=== PATIENT | female | born 1995 | race Caucasian/White ===

== ENCOUNTER 2017-03-17 21:00 | Emergency (ER) | payer MEDICAID ==
[~2017-03-17] VITALS: Ht 167.6 cm; Wt 56.7 kg
[~2017-03-17 21:00] MED LIST: ACHYD1T PO; CEPH500C PO; DCS100C PO; DOCU100C37 PO; FERR-65 PO; HYDR-3812 PO; IBP800T PO; IBUP-1773 PO; METH4TAB PO; PREN-48 PO; SPRINTEC BCP PO; [UNRECOGNIZED DRUG - CODE] PO
[2017-03-17 21:51] LABS: BILIRUBIN,URINE NEGATIVE (NEGATIVE); KETONES,URINE NEGATIVE (NEGATIVE); LEUKOCYTE ESTERASE ,URINE 1+ (NEGATIVE); NITRITE,URINE POSITIVE (NEGATIVE); PH,URINE 6.5 (5-9); PROTEIN,URINE 2+ (NEGATIVE); UROBILINOGEN,URINE NORMAL (NORMAL)
[2017-03-17 21:59] LABS: BASOPHILS % (AUTO) 0 % (0-10); EOSINOPHILS # (AUTO) 0.1 10^3/uL (0.0-0.3); EOSINOPHILS % (AUTO) 1 % (0-10); LYMPHOCYTES % (AUTO) 19 % (12-44); MEAN CORPUSCULAR HEMOGLOBIN 31 PG (25-34); MEAN CORPUSCULAR HGB CONC 34 G/DL (32-36); MEAN CORPUSCULAR VOLUME 90 FL (80-99); MEAN PLATELET VOLUME 11.4 FL (7.4-10.4); MONOCYTES # (AUTO) 1.2 X 10^3 (0.0-1.0); MONOCYTES % (AUTO) 12 % (0-12); NEUTROPHILS # (AUTO) 7.1 X 10^3 (1.8-7.8); NEUTROPHILS % (AUTO) 68 % (42-75); PLATELET COUNT 233 10^3/uL (130-400); RED BLOOD COUNT 4.63 10^6/uL (4.35-5.85); RED CELL DISTRIBUTION WIDTH 13.1 % (10.0-14.5); WHITE BLOOD COUNT 10.4 10^3/uL (4.3-11.0)
[2017-03-17] MEDS ORDERED: NS IV 1000 ML 1,000 ML IV ONE (22:05)
[2017-03-17 22:16] LABS: ALANINE AMINOTRANSFERASE 11 U/L (0-55); ALBUMIN 4.5 GM/DL (3.2-4.5); ANION GAP 14 MMOL/L (5-14); ASPARTATE AMINO TRANSFERASE 13 U/L (5-34); BILIRUBIN,TOTAL 1.2 MG/DL (0.1-1.0); BLOOD UREA NITROGEN 8 MG/DL (7-18); BUN/CREATININE RATIO 10; CALCIUM 9.3 MG/DL (8.5-10.1); CARBON DIOXIDE 22 MMOL/L (21-32); CHLORIDE 104 MMOL/L (98-107); CREATININE SERUM 0.78 MG/DL (0.60-1.30); GFR ESTIMATED > 60; GLUCOSE 88 MG/DL (70-105); POTASSIUM 3.5 MMOL/L (3.6-5.0); SODIUM 140 MMOL/L (135-145); TOTAL PROTEIN 7.4 GM/DL (6.4-8.2)
--- NOTE | 2017-03-17 22:37 | ED Abdominal Pain ---
General Chief Complaint: Abdominal/GI Problems Stated Complaint: RT SIDED ABDOMINAL PAIN/FEVER Nursing Triage Note: c/o RUQ abdomen pain with nausea since 10am. Sepsis Screen: No Definite Risk Source of Information: Patient Exam Limitations: No Limitations History of Present Illness Time Seen By Provider: 21:38 Initial Comments This 21-year-old young lady presents to the emergency room with complaints of pain in the right flank and right upper quadrant that started around 10:00 this morning. She has nausea without vomiting. She denies any urinary changes. She had a Mirena IUD placed about 2 weeks ago and therefore denies . She denies any constipation or diarrhea. She had her last bowel movement this morning which was normal. She last ate chips and cheese dip around 19:30. LMP was about 10 days ago. She also complains of a "migraine headache". She has a history of migraines. She denies fever but has had some chills. She reports her pain as 5/10 at rest and 8 or 9/10 with movement. Allergies and Home Medications Allergies Coded Allergies: Penicillins (Verified Allergy, Severe, HIVES, 02/05/12) Home Medications Cephalexin 500 Mg Capsule, 500 MG PO QID, #28 Prescribed by: KIEL ACOSTA on 03/18/17 0007 Docusate Sodium 100 Mg Capsule, 100 MG PO BID PRN for CONSTIPATION, #40 Prescribed by: PRETTY KWON on 09/04/15 1722 Ferrous Sulfate 325 Mg Tablet, 325 MG PO DAILY, #30 Prescribed by: ANDRADE COLEMAN on 09/05/15 0758 Hydrocodone/Acetaminophen 1 Each Tablet, 1-2 TAB PO Q4H PRN for PAIN, #50 Prescribed by: PRETTY KWON on 09/04/15 1722 Ibuprofen 600 Mg Tablet, 600 MG PO Q6H, #80 Prescribed by: PRETTY KWON on 09/04/15 1722 Ondansetron 4 Mg Tab.rapdis, 4 MG SL Q4H PRN for NAUSEA/VOMITING-1ST LINE, #10 Prescribed by: KIEL ACOSTA on 03/18/17 0004 Vit No.78/Iron/FA 1 Each Tablet, 1 EACH PO DAILY, (Reported) Review of Systems Constitutional: chills, No fever EENTM: No Symptoms Reported Respiratory: No Symptoms Reported Cardiovascular: No Symptoms Reported Gastrointestinal: See HPI Genitourinary: No Symptoms Reported Musculoskeletal: no symptoms reported Skin: no symptoms reported Psychiatric/Neurological: No Symptoms Reported Endocrine: No Symptoms Reported Hematologic/Lymphatic: No Symptoms Reported Past Hxbourm-Tpbaxa-Wenmzq Hx Patient Social History Alcohol Use: Denies Use Recreational Drug Use: No Smoking Status: Current Everyday Smoker Type Used: Cigarettes Recent Foreign Travel: No Contact w/Someone Who Travel: No Recent Infectious Disease Expo: No Immunizations Up To Date Tetanus Booster (TDap): Unknown PED Vaccines UTD: Yes Date of Influenza Vaccine: Jul 08, 2015 Surgeries HX Surgeries: Yes Surgeries: Section Respiratory Hx Respiratory Disorders: No Cardiovascular Hx Cardiac Disorders: No Neurological Hx Neurological Disorders: Yes Neurological Disorders: Headaches /Migraines Reproductive System Hx Reproductive Disorders: No Sexually Transmitted Disease: No HIV/AIDS: No Female Reproductive Disorders: Denies Genitourinary Hx Genitourinary Disorders: No Gastrointestinal Hx Gastrointestinal Disorders: Yes ( INDUCED-TAKE TUMS) Gastrointestinal Disorders: Gastroesophageal Reflux Musculoskeletal Hx Musculoskeletal Disorders: No Endocrine Hx Endocrine Disorders: No HEENT HX ENT Disorders: Yes (GLASSES) Loss of Vision: Bilateral Hearing Impairment: Denies Cancer Hx Cancer: No Psychosocial Hx Psychiatric Problems: Yes Behavioral Health Disorders: Anxiety, Depression Integumentary HX Skin/Integumentary Disorder: No Blood Transfusions Hx Blood Disorders: No Adverse Reaction to a Blood Tr: No Family Medical History Family Medial History: Hypertension 19 FATHER Physical Exam Vital Signs VS - Last 72 Hours, by Label 03/17/17 21:08 Temp 99.5 Pulse 108 Resp 18 B/P (MAP) 120/83 Pulse Ox 100 Capillary Refill : Less Than 3 Seconds General Appearance: WD/WN, no apparent distress, thin HEENT: PERRL/EOMI, normal ENT inspection, pharynx normal Neck: normal inspection Respiratory: lungs clear, normal breath sounds, no respiratory distress, no accessory muscle use Cardiovascular: regular rate, rhythm, no edema, no murmur Gastrointestinal: normal bowel sounds, soft Extremities: normal inspection, no pedal edema Back: CVA tenderness (R) Neurologic/Psychiatric: 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 intern II-XII nml as tested, no motor/sensory deficits, alert, normal mood/affect, oriented x 3 Skin: normal color, warm/dry Progress/Results/Core Measures Results/Orders Lab Results Laboratory Tests Test 03/17/17 21:45 03/17/17 21:50 Range/Units Urine Color YELLOW Urine Clarity CLEAR Urine pH 6.5 5-9 Urine Specific [place] 1.010 L 1.016-1.022 Urine Protein 2+ H NEGATIVE Urine Glucose (UA) NEGATIVE NEGATIVE Urine Ketones NEGATIVE NEGATIVE Urine Nitrite POSITIVE H NEGATIVE Urine Bilirubin NEGATIVE NEGATIVE Urine Urobilinogen NORMAL NORMAL MG/DL Urine Leukocyte Esterase 1+ H NEGATIVE Urine RBC (Auto) 1+ H NEGATIVE Urine RBC 2-5 H /HPF Urine WBC 2-5 /HPF Urine Squamous Epithelial Cells 5-10 /HPF Urine Crystals NONE /LPF Urine Bacteria MODERATE H /HPF Urine Casts NONE /LPF Urine Mucus NEGATIVE /LPF Urine Culture Indicated YES White Blood Count 10.4 4.3-11.0 10^3/uL Red Blood Count 4.63 4.35-5.85 10^6/uL Hemoglobin 14.1 11.5-16.0 G/DL Hematocrit 42 35-52 % Mean Corpuscular Volume 90 80-99 FL Mean Corpuscular Hemoglobin 31 25-34 PG Mean Corpuscular Hemoglobin Concent 34 32-36 G/DL Red Cell Distribution Width 13.1 10.0-14.5 % Platelet Count 233 130-400 10^3/uL Mean Platelet Volume 11.4 H 7.4-10.4 FL Neutrophils (%) (Auto) 68 42-75 % Lymphocytes (%) (Auto) 19 12-44 % Monocytes (%) (Auto) 12 0-12 % Eosinophils (%) (Auto) 1 0-10 % Basophils (%) (Auto) 0 0-10 % Neutrophils # (Auto) 7.1 1.8-7.8 X 10^3 Lymphocytes # (Auto) 2.0 1.0-4.0 X 10^3 Monocytes # (Auto) 1.2 H 0.0-1.0 X 10^3 Eosinophils # (Auto) 0.1 0.0-0.3 10^3/uL Basophils # (Auto) 0.0 0.0-0.1 10^3/uL Sodium Level 140 135-145 MMOL/L Potassium Level 3.5 L 3.6-5.0 MMOL/L Chloride Level 104 98-107 MMOL/L Carbon Dioxide Level 22 21-32 MMOL/L Anion Gap 14 5-14 MMOL/L Blood Urea Nitrogen 8 7-18 MG/DL Creatinine 0.78 0.60-1.30 MG/DL Estimat Glomerular Filtration Rate > 60 BUN/Creatinine Ratio 10 Glucose Level 88 70-105 MG/DL Calcium Level 9.3 8.5-10.1 MG/DL Total Bilirubin 1.2 H 0.1-1.0 MG/DL Aspartate Amino Transf (AST/SGOT) 13 5-34 U/L Alanine Aminotransferase (ALT/SGPT) 11 0-55 U/L Alkaline Phosphatase 82 40-136 U/L Total Protein 7.4 6.4-8.2 GM/DL Albumin 4.5 3.2-4.5 GM/DL Serum Test, Qualitative NEGATIVE NEGATIVE My Orders Orders - KIEL HURTADO MD Cbc With Automated Diff (03/17/17 21:44) Comprehensive Metabolic Panel (03/17/17 21:44) Hcg,Qualitative Serum (03/17/17 21:44) Ua Culture If Indicated (03/17/17 21:44) Saline Lock/Iv-Start (03/17/17 21:44) Urine Culture (03/17/17 21:45) Ns Iv 1000 Ml (Sodium Chloride 0.9%) (03/17/17 22:05) Ceftriaxone Injection (Rocephin Injectio (03/17/17 22:45) Ct Abd/Pelvis Wo(Kidney Stone) (03/17/17 22:33) Ketorolac Injection (Toradol Injection) (03/17/17 23:45) Medications Given in ED Current Medications Medications Dose Ordered Sig/Tom Route Start Time Stop Time Status Last Admin Dose Admin Ceftriaxone Sodium 1000 mg/ Sodium Chloride 50 ml @ 100 mls/hr ONCE ONCE IV 03/17/17 22:45 03/17/17 23:14 DC 03/17/17 22:38 100 MLS/HR Ketorolac Tromethamine 30 mg ONCE ONCE IVP 03/17/17 23:45 03/17/17 23:46 DC 03/17/17 23:43 30 MG Sodium Chloride 1,000 ml @ 0 mls/hr Q0M ONCE IV 03/17/17 22:05 03/17/17 22:06 DC 03/17/17 22:18 0 MLS/HR Vital Signs/I&O Vital Sign - Last 12Hours 03/17/17 21:08 Temp 99.5 Pulse 108 Resp 18 B/P (MAP) 120/83 Pulse Ox 100 Blood Pressure Mean: 95 Progress Note #1: Time: 22:35 Progress Note Blood work is unremarkable. Pain and nausea are waxing and waning but tolerable at this time. Patient is receiving a liter of IV fluids. Urinalysis suggested urinary tract infection with nitrite and bacteria presence. There is concern for possible complicated right ureteral stone. CT has been ordered. Progress Note #2: Progress Note Patient received a liter of IV fluids and 1 g of Rocephin. Patient has a penicillin allergy but reported prior tolerance of cephalosporins. Patient was also eventually treated with Toradol for headache and right flank pain. Her pain improved significant prior to dismissal. CT showed no acute abnormalities requiring intervention. Patient was advised to seek further evaluation of the gallbladder with ultrasound if pain did not improve after treatment of UTI. Diagnostic Imaging Diagonstic Imaging: CT Plain Films/CT/US/NM/MRI: abdomen, pelvis Comments CT abdomen and pelvis viewed by me and [facility] report reviewed. There is no evidence for hydronephrosis or perinephric stranding. No evidence of renal or ureteral stone. Gallbladder appeared normal. There is density within the appendix suggestive of appendicoliths but no dilation to suggest appendicitis. Departure Impression Impression: Primary Impression: Urinary tract infection Qualified Codes: N39.0 - Urinary tract infection, site not specified Additional Impressions: Right flank pain Nausea Acute headache Qualified Codes: R51 - Headache Disposition: 01 HOME, SELF-CARE Condition: Improved Departure-Patient Inst. Decision time for Depature: 00:02 Referrals: NO,LOCAL PHYSICIAN (PCP/Family) Primary Care Physician Patient Instructions: Acute Abdomen (Belly Pain), Adult (DC), Urinary Tract Infection, Adult (DC) Add. Discharge Instructions: Drink plenty of clear liquids. Complete your antibiotics as prescribed. Follow -up with your primary care provider on Tuesday. Return to care if symptoms worsen. If he continued to have abdominal pain after treatment with antibiotics , ask your primary care provider about possibly ordering a gallbladder ultrasound. You may take Tylenol (acetaminophen) up to 650 mg every 6 hours as needed for pain. You may additionally take ibuprofen up to 400 mg every 6 hours as needed for further pain relief. Fill the printed Zofran (ondansetron) prescription if needed for treatment of nausea. Eat a low-fat diet to avoid irritation of the gallbladder. All discharge instructions reviewed with patient and/or family. Voiced understanding. Scripts Cephalexin (Keflex) 500 Mg Capsule 500 MG PO QID, #28 CAP Prov: KIEL HURTADO MD 03/18/17 Ondansetron (Zofran Odt) 4 Mg Tab.rapdis 4 MG SL Q4H Y for NAUSEA/VOMITING-1ST LINE, #10 TAB Prov: KIEL HURTADO MD 03/18/17 KIEL HURTADO MD Mar 17, 2017 22:37
[2017-03-17] MEDS ORDERED: cefTRIAXone INJECTION 1,000 MG in NS (IVPB) 50 ML IV ONE (22:45)
[2017-03-17] MEDS ORDERED: KETOROLAC 30 MG/ML VIAL IVP ONE (23:45)
[2017-03-18] MEDS ORDERED: CEPH-507 PO ×2 (00:04→00:07)
[2017-03-18] MEDS ORDERED: ONDA4TAB8 SL (00:04)
[2017-03-18 00:15] VITALS: BP 120/83
--- NOTE | 2017-03-18 07:08 | Diagnostic Imaging Report ---
PROCEDURE: CT urinary tract, rule out kidney stone. TECHNIQUE: Multiple contiguous axial images were obtained through the abdomen and pelvis without the use of intravenous contrast. INDICATION: Right upper quadrant pain and nausea starting earlier in the day. CORRELATION STUDY: None. FINDINGS: LOWER THORAX: Borderline heart size may be accentuated pectus excavatum deformity. Lung bases clear. LIVER: Unremarkable. GALLBLADDER: Present and unremarkable. No bile duct dilatation. SPLEEN: Borderline in size, otherwise unremarkable. PANCREAS: Unremarkable. ADRENAL GLANDS: Unremarkable. KIDNEYS: Relatively normal appearance. No definitive calcification or evidence for obstructive neuropathy. Ureters, however, cannot be completely traced. ABDOMINAL AORTA: Unremarkable, nonaneurysmal. GASTROINTESTINAL TRACT: Some increased density seen within the appendix suggestive of retained barium from perhaps prior examination or appendicolith. No significant dilatation or inflammatory type changes to suggest acute appendicitis. Gastrointestinal tract otherwise unremarkable. Trace amount of nonspecific free fluid suggested in the pelvis. URINARY BLADDER: Unremarkable. REPRODUCTIVE: Intrauterine contraceptive device is present in the uterus. OSSEOUS STRUCTURES: Negative for acute abnormality. Overall assessment is limited by the lack of contrast and generalized paucity of intra-abdominal fat. IMPRESSION: 1. No definitive evidence of acute abnormality about the abdomen and/or pelvis on noncontrast imaging. A preliminary report was provided by [employer]. Dictated by: Dictated on workstation # [id number]
== END 2017-03-18 00:15 | disposition home or self-care (01) ==
LOC: EDUNIT# 21:00 → ER 21:03
DX: N39.0 Urinary tract infection, site not specified (principal); R51 Headache; G43.909 Migraine, unspecified, not intractable, without status migrainosus; F41.9 Anxiety disorder, unspecified; F32.9 Major depressive disorder, single episode, unspecified; K21.9 Gastro-esophageal reflux disease without esophagitis; F17.210 Nicotine dependence, cigarettes, uncomplicated; Z87.59 Personal history of other complications of pregnancy, childbirth and the puerperium
CPT/HCPCS: 36415; 74176; 80053; 81000; 84703; 85025; 87088; 87186; 96361; 96365; 96375

== ENCOUNTER → 2018-12-29 | Emergency (ER) | payer SELFPAY ==
[~2018-12-29] VITALS: Ht 167.6 cm; Wt 56.7 kg
[~2018-12-29] MED LIST changes: +ACHD5005 PO; +CEPH-507 PO; -HYDR-3812 PO; +KETOROLAC 30 MG/ML VIAL IVP ONE; +ONDA4TAB8 SL; +PRD10T PO; +RX-TRAMADOL 50 MG (ULTRAM) TAB PPK#4 PO STA; +RX-TRIMETH/SULFA. 160-800 MG (BACTRIM DS) TAB PPK#2 PO STA; +SULF1TAB35 PO; +TRIM/SULFAMETH 160/800 (SEPTRA DS) TAB PO ONE; +VANCOMYCIN INJECTION 1,000 MG in NS (IVPB) 250 ML IV ONE; +methylPREDNISolone 125 MG (Solu-MEDROL) VIAL IVP ONE
--- NOTE | 2018-12-29 23:43 | NUR ---
pt here with " moms boyfriend". pt alert gcs 15. pt relates " absess" right buttock x 3 days. pt has h/o same. pain rating 7 to area. pt denies dypnea and no acute sighns of dyspnea noted. pt has baseball size rednes and slight swelling to right buttock area. pt said it " popped in shower last noc". pt says tylenol helps with pain. done analisa pt at 0687.
--- NOTE | 2018-12-30 01:11 | NUR ---
labs to lab by me shortly
[2018-12-30 01:23] LABS: BASOPHILS % (AUTO) 0 % (0-10); EOSINOPHILS # (AUTO) 0.1 10^3/uL (0.0-0.3); EOSINOPHILS % (AUTO) 1 % (0-10); HEMATOCRIT 41 % (35-52); HEMOGLOBIN 14.3 G/DL (11.5-16.0); LYMPHOCYTES # (AUTO) 1.2 X 10^3 (1.0-4.0); LYMPHOCYTES % (AUTO) 10 % (12-44); MEAN CORPUSCULAR HEMOGLOBIN 31 PG (25-34); MEAN CORPUSCULAR HGB CONC 35 G/DL (32-36); MEAN CORPUSCULAR VOLUME 89 FL (80-99); MEAN PLATELET VOLUME 11.6 FL (7.4-10.4); MONOCYTES # (AUTO) 1.2 X 10^3 (0.0-1.0); MONOCYTES % (AUTO) 9 % (0-12); NEUTROPHILS # (AUTO) 10.1 X 10^3 (1.8-7.8); NEUTROPHILS % (AUTO) 80 % (42-75); PLATELET COUNT 235 10^3/uL (130-400); WHITE BLOOD COUNT 12.6 10^3/uL (4.3-11.0)
[2018-12-30 01:25] LABS: BILIRUBIN,URINE NEGATIVE (NEGATIVE); CLARITY,URINE CLEAR; COLOR,URINE YELLOW; GLUCOSE, URINE (UA) NEGATIVE (NEGATIVE); KETONES,URINE NEGATIVE (NEGATIVE); LEUKOCYTE ESTERASE ,URINE NEGATIVE (NEGATIVE); NITRITE,URINE NEGATIVE (NEGATIVE); PH,URINE 6 (5-9); PROTEIN,URINE 2+ (NEGATIVE); UROBILINOGEN,URINE NORMAL (NORMAL)
[2018-12-30 01:31] LABS: BACTERIA,URINE NEGATIVE /HPF; RBC,URINE 0-2 /HPF
[2018-12-30 01:41] LABS: AMPHETAMINE SCREEN, URINE POSITIVE (NEGATIVE); BARBITURATE SCREEN URINE NEGATIVE (NEGATIVE); BENZODIAZEPINES SCREEN URINE NEGATIVE (NEGATIVE); CANNABINOID SCREEN, URINE NEGATIVE (NEGATIVE); COCAINE SCREEN URINE NEGATIVE (NEGATIVE); METHADONE STAT NEGATIVE (NEGATIVE); METHAMPHETAMINE SCREEN URINE S POSITIVE (NEGATIVE); OPIATE SCREEN URINE NEGATIVE (NEGATIVE); OXYCODONE STAT NEGATIVE (NEGATIVE); PROPOXYPHENE STAT NEGATIVE (NEGATIVE); TRICYCLIC ANTIDEPRESSANTS SCRE NEGATIVE (NEGATIVE)
[2018-12-30 01:42] LABS: INR 1.2 (0.8-1.4); PROTHROMBIN TIME PATIENT 15.5 SEC (12.2-14.7)
[2018-12-30 01:43] LABS: ALANINE AMINOTRANSFERASE 16 U/L (0-55); ALBUMIN 4.7 GM/DL (3.2-4.5); ALKALINE PHOSPHATASE 82 U/L (40-136); BILIRUBIN,TOTAL 0.7 MG/DL (0.1-1.0); BUN/CREATININE RATIO 16; CALCIUM 9.6 MG/DL (8.5-10.1); CARBON DIOXIDE 21 MMOL/L (21-32); CHLORIDE 105 MMOL/L (98-107); CREATININE SERUM 0.89 MG/DL (0.60-1.30); GFR ESTIMATED > 60; GLUCOSE 72 MG/DL (70-105); POTASSIUM 3.2 MMOL/L (3.6-5.0); SODIUM 138 MMOL/L (135-145)
--- NOTE | 2018-12-30 01:47 | ED Integumentary General ---
General Chief Complaint: Skin/Wound Problems Stated Complaint: ABSCESS AT LOWER BACK,NAUSEA Nursing Triage Note: abscess x 3 days Source: patient History of Present Illness Date Seen by Provider: Dec 30, 2018 Time Seen by Provider: 00:17 Initial Comments PT ARRIVES VIA POV FROM HOME C/O "ABSCESS" TO RIGHT BUTTOCK FOR 3-4 DAYS STATES IT "BROKE OPEN" AND DRAINED A LARGE AMOUNT OF PURULENT DRAINAGE LAST NIGHT STATES REDNESS AND SWELLING HAS IMPROVED ALOT SINCE THEN NO FEVER HAS HAS THE SAME THING A FEW TIMES--LAST TIME WAS 06/2018 ON LEFT BUTTOCK. HAS HAD TO HAVE I&D'S DONE BEFORE HX OF MRSA, PER PT PCP: [facility] Allergies and Home Medications Allergies Coded Allergies: Penicillins (Verified Allergy, Severe, HIVES, 02/05/12) Home Medications Cephalexin 500 Mg Capsule, 500 MG PO QID Prescribed by: KIEL ACOSTA on 03/18/17 0007 Docusate Sodium 100 Mg Capsule, 100 MG PO BID PRN for CONSTIPATION Prescribed by: PRETTY KWON on 09/04/15 1722 Ferrous Sulfate 325 Mg Tablet, 325 MG PO DAILY Prescribed by: ANDRADE COLEMAN on 09/05/15 0758 Hydrocodone Bit/Acetaminophen 1 Each Tablet, 1-2 TAB PO Q4H PRN for PAIN Prescribed by: PRETTY KWON on 09/04/15 172 Ibuprofen 600 Mg Tablet, 600 MG PO Q6H Prescribed by: PRETTY KWON on 09/04/15 1722 Ondansetron 4 Mg Tab.rapdis, 4 MG SL Q4H PRN for NAUSEA/VOMITING-1ST LINE Prescribed by: KIEL ACOSTA on 03/18/17 0004 Prednisone 10 Mg Tab, 40 MG PO DAILY Prescribed by: SUSANNA MURRY on 12/30/18148 Vit No.78/Iron/FA 1 Each Tablet, 1 EACH PO DAILY, (Reported) Sulfamethoxazole/Trimethoprim 1 Each Tablet, 2 EACH PO BID Prescribed by: SUSANNA MURRY on 12/30/18148 Patient Home Medication List Home Medication List Reviewed: Yes Review of Systems Review of Systems Constitutional: no symptoms reported; No chills, No diaphoresis, No fever Respiratory: no symptoms reported Cardiovascular: no symptoms reported Gastrointestinal: no symptoms reported Genitourinary: no symptoms reported : No (LMP--UNKNOWN, HAS IUD IN PLACE) Musculoskeletal: no symptoms reported Skin: see HPI Psychiatric/Neurological: No Symptoms Reported Endocrine: No Symptoms Reported Hematologic/Lymphatic: No Symptoms Reported Past Hnznfqy-Grcmca-Ehixnc Hx Patient Social History Alcohol Use: Denies Use Recreational Drug Use: Yes (DENIES BUT TESTED + FOR METH/AMPHETAMINES ON 12/30/18) Drug of Choice: TESTED + FOR METH/ AMPHETAMINES ON 12/30/18 Smoking Status: Current Everyday Smoker (1 PPD) Type Used: Cigarettes Recent Foreign Travel: No Contact w/Someone Who Travel: No Recent Infectious Disease Expo: No Physical Abuse: No Sexual Abuse: No Immunizations Up To Date Tetanus Booster (TDap): More than 5yrs PED Vaccines UTD: Yes Date of Influenza Vaccine: Jul 08, 2015 Past Medical History Surgeries: Yes ( X 2 ) Section Respiratory: No Cardiac: No Neurological: Yes Headaches /Migraines : No Reproductive Disorders: No Female Reproductive Disorders: Denies 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 Sexually Transmitted Disease: No HIV/AIDS: No Genitourinary: No Gastrointestinal: Yes ( INDUCED-TAKE TUMS) Gastroesophageal Reflux Musculoskeletal: No Endocrine: No Loss of Vision: Bilateral Hearing Impairment: Denies Cancer: No Psychosocial: Yes Anxiety, Depression Integumentary: No Blood Disorders: No Adverse Reaction/Blood Tranf: No Family Medical History Hypertension 19 FATHER Physical Exam Vital Signs Vital Signs - First Documented 12/29/18 23:43 Temp 98.5 Pulse 100 Resp 16 B/P (MAP) 99/63 (75) Pulse Ox 100 O2 Delivery Room Air Capillary Refill : Less Than 3 Seconds General Appearance: no apparent distress, thin, other HEENT: other (POOR DENTITION--MULTIPLE MISSING TEETH AND REMAINING TEETH WITH EXTENSIVE DECAY) Cardiovascular: regular rate, rhythm, no murmur Respiratory: normal breath sounds Gastrointestinal: non tender, soft Back: no CVA tenderness, no vertebral tenderness Extremities: normal range of motion, normal capillary refill Neurologic/Psychiatric: 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 RIGHT BUTTOCK WITH 14 X 18 CM AREA OF WARMTH, ERYTHEMA AND INDURATION, WITH CENTRAL SCABBED AREA. NO AREAS OF FLUCTUANCE. NO DRAINAGE. NO STREAKS. DOES NOT CROSS MIDLINE OR APPROACH PERIRECTAL AREA. ) Progress/Results/Core Measures Results/Orders Lab Results Laboratory Tests Test 12/30/18 00:50 12/30/18 01:03 Range/Units Urine Color YELLOW Urine Clarity CLEAR Urine pH 6 5-9 Urine Specific [place] 1.010 L 1.016-1.022 Urine Protein 2+ H NEGATIVE Urine Glucose (UA) NEGATIVE NEGATIVE Urine Ketones NEGATIVE NEGATIVE Urine Nitrite NEGATIVE NEGATIVE Urine Bilirubin NEGATIVE NEGATIVE Urine Urobilinogen NORMAL NORMAL MG/DL Urine Leukocyte Esterase NEGATIVE NEGATIVE Urine RBC (Auto) 2+ H NEGATIVE Urine RBC 0-2 /HPF Urine WBC NONE /HPF Urine Squamous Epithelial Cells 10-25 H /HPF Urine Crystals NONE /LPF Urine Bacteria NEGATIVE /HPF Urine Casts NONE /LPF Urine Mucus NEGATIVE /LPF Urine Culture Indicated NO Urine Opiates Screen NEGATIVE NEGATIVE Urine Oxycodone Screen NEGATIVE NEGATIVE Urine Methadone Screen NEGATIVE NEGATIVE Urine Propoxyphene Screen NEGATIVE NEGATIVE Urine Barbiturates Screen NEGATIVE NEGATIVE Ur Tricyclic Antidepressants Screen NEGATIVE NEGATIVE Urine Phencyclidine Screen NEGATIVE NEGATIVE Urine Amphetamines Screen POSITIVE H NEGATIVE Urine Methamphetamines Screen POSITIVE H NEGATIVE Urine Benzodiazepines Screen NEGATIVE NEGATIVE Urine Cocaine Screen NEGATIVE NEGATIVE Urine Cannabinoids Screen NEGATIVE NEGATIVE White Blood Count 12.6 H 4.3-11.0 10^3/uL Red Blood Count 4.64 4.35-5.85 10^6/uL Hemoglobin 14.3 11.5-16.0 G/DL Hematocrit 41 35-52 % Mean Corpuscular Volume 89 80-99 FL Mean Corpuscular Hemoglobin 31 25-34 PG Mean Corpuscular Hemoglobin Concent 35 32-36 G/DL Red Cell Distribution Width 13.0 10.0-14.5 % Platelet Count 235 130-400 10^3/uL Mean Platelet Volume 11.6 H 7.4-10.4 FL Neutrophils (%) (Auto) 80 H 42-75 % Lymphocytes (%) (Auto) 10 L 12-44 % Monocytes (%) (Auto) 9 0-12 % Eosinophils (%) (Auto) 1 0-10 % Basophils (%) (Auto) 0 0-10 % Neutrophils # (Auto) 10.1 H 1.8-7.8 X 10^3 Lymphocytes # (Auto) 1.2 1.0-4.0 X 10^3 Monocytes # (Auto) 1.2 H 0.0-1.0 X 10^3 Eosinophils # (Auto) 0.1 0.0-0.3 10^3/uL Basophils # (Auto) 0.0 0.0-0.1 10^3/uL Prothrombin Time 15.5 H 12.2-14.7 SEC INR Comment 1.2 0.8-1.4 Activated Partial Thromboplast Time 43 H 24-35 SEC Sodium Level 138 135-145 MMOL/L Potassium Level 3.2 L 3.6-5.0 MMOL/L Chloride Level 105 98-107 MMOL/L Carbon Dioxide Level 21 21-32 MMOL/L Anion Gap 12 5-14 MMOL/L Blood Urea Nitrogen 14 7-18 MG/DL Creatinine 0.89 0.60-1.30 MG/DL Estimat Glomerular Filtration Rate > 60 BUN/Creatinine Ratio 16 Glucose Level 72 70-105 MG/DL Lactic Acid Level 1.16 0.50-2.00 MMOL/L Calcium Level 9.6 8.5-10.1 MG/DL Corrected Calcium 8.5-10.1 MG/DL Total Bilirubin 0.7 0.1-1.0 MG/DL Aspartate Amino Transf (AST/SGOT) 13 5-34 U/L Alanine Aminotransferase (ALT/SGPT) 16 0-55 U/L Alkaline Phosphatase 82 40-136 U/L Total Protein 8.0 6.4-8.2 GM/DL Albumin 4.7 H 3.2-4.5 GM/DL My Orders Orders - SUSANNA MURRY DO Ed Iv/Invasive Line Start (12/30/18 00:25) Cbc With Automated Diff (12/30/18 00:25) Comprehensive Metabolic Panel (12/30/18 00:25) Drug Screen Stat (Urine) (12/30/18 00:25) Lactic Acid Analyzer (12/30/18 00:25) Protime With Inr (12/30/18 00:25) Partial Thromboplastin Time (12/30/18 00:25) Ua Culture If Indicated (12/30/18 00:25) Blood Culture (12/30/18 00:25) Vancomycin Injection (Vancomycin Injecti (12/30/18 00:30) Ct Pelvis Wo (12/30/18 00:25) Ketorolac Injection (Toradol Injection) (12/30/18 00:30) Methylprednisolone Sod Succ (Solu-Medrol (12/30/18 02:00) Sulfamethoxazole/Trimet Ds Tab (Bactrim (12/30/18 02:00) Rx-Trimeth/Sulfameth Ds Tab (Rx-Bactrim/ (12/30/18 01:50) Rx-Tramadol Hcl (Rx-Ultram) (12/30/18 01:50) Medications Given in ED Current Medications Medications Dose Ordered Sig/Tom Route Start Time Stop Time Status Last Admin Dose Admin Ketorolac Tromethamine 30 mg ONCE ONCE IVP 12/30/18 00:30 12/30/18 00:31 DC 12/30/18 01:06 30 MG Methylprednisolone Sodium Succinate 125 mg ONCE ONCE IVP 12/30/18 02:00 12/30/18 02:24 DC 12/30/18 02:39 125 MG Trimethoprim/ Sulfamethoxazole 2 ea ONCE ONCE PO 12/30/18 02:00 12/30/18 02:24 DC 12/30/18 02:42 2 EA Vancomycin HCl 1000 mg/Sodium Chloride 250 ml @ 250 mls/hr ONCE ONCE IV 12/30/18 00:30 12/30/18 01:29 DC 12/30/18 01:09 250 MLS/HR Vital Signs/I&O 12/29/18 12/30/18 23:43 02:54 Temp 98.5 98.7 Pulse 100 88 Resp 16 16 B/P (MAP) 99/63 (75) 119/86 (97) Pulse Ox 100 100 O2 Delivery Room Air Blood Pressure Mean: 75 Progress Progress Note : Progress Note PAIN IMPROVED AT DISMISSAL Diagnostic Imaging Comments CT ABDOMEN/PELVIS--MODERATE CELLULITIS IN RIGHT GLUTEAL REGION. SMALL AREA OF NON-ENCAPSULATED POSSIBLE SUB Q FLUID DEEP TO IMAGING MARKER ON SKIN, NO MORE THAN 2 CM--PER [facility] VIA FAX @ [id number] Reviewed: Reviewed by Me Departure Impression Primary Impression: Cellulitis of right buttock Additional Impression: Hx MRSA infection Disposition: HOME, SELF-CARE Condition: Stable Departure-Patient Inst. Referrals: [facility] (PCP/Family) Primary Care Physician Patient Instructions: Cellulitis (Skin Infection), Adult (DC), Methicillin- Resistant Staphylococcus aureus (MRSA) Add. Discharge Instructions: MOIST HEAT TO AREA AT 20 MINUTE INTERVALS TYLENOL NEEDED FOR PAIN OR FEVER COVER AREA IF IT STARTS TO DRAIN AGAIN FOLLOW UP WITH [facility] TOMORROW FOR FURTHER CARE All discharge instructions reviewed with patient and/or family. Voiced understanding. Scripts Prednisone (Prednisone) 10 Mg Tab 40 MG PO DAILY, #12 TAB Prov: SUSANNA MURRY DO 12/30/18 Sulfamethoxazole/Trimethoprim (Bactrim Ds Tablet) 1 Each Tablet 2 EACH PO BID, #40 TAB Prov: SUSANNA MURRY DO 12/30/18 SUSANNA MURRY DO Dec 30, 2018 01:47
--- NOTE | 2018-12-30 02:35 | NUR ---
v/o dr. 2 bactrim now and 2 to take home. ultram take home only
--- NOTE | 2018-12-30 02:50 | NUR ---
d/c insructions to pt. told to read all papers. scripts faxed. pt knows f/u. i went over the handtyped by information on the chart. vanco was completed and iv d/cd by me prior to d/c. take home bactrim and ultram given. pt left ambulatory with moms willie.
[2018-12-30 02:54] VITALS: BP 119/86
--- NOTE | 2018-12-30 06:35 | Diagnostic Imaging Report ---
PROCEDURE: CT pelvis without contrast. TECHNIQUE: Multiple contiguous axial images were obtained through the pelvis without the use of intravenous contrast. Sagittal and coronal reformations were performed. Auto Exposure Controls were utilized during the CT exam to meet ALARA standards for radiation dose reduction. INDICATION: Right buttock abscess. FINDINGS: The previous CT abdomen/pelvis exam of 03/17/2017 failed to show any sign of an acute abnormality. At this time, there is clinical concern regarding an abscess arising from the right buttock. The patient was scanned in the prone position. There is considerable distortion of the subcutaneous fat of the right buttock. There is also a small 1.7 x 2.3 cm area of increased density just beneath the skin surface in the area of the marker over the region of concern. This may be related to indurated infected tissue alone. There is no drainable abscess visualized. If further evaluation of this area is desired, then ultrasound would be recommended. There is no acute pelvic abnormality noted. The IUD within the uterus seen on the previous study is again evident and appears to be in good position. IMPRESSION: 1. There is considerable distortion of the subcutaneous fat of the right buttock. This does suggest edema/inflammation and is most likely related to cellulitis. There is an area of increased density in this region but there is no drainable abscess visualized. Additional considerations as above. 2. There is no acute pelvic abnormality noted. 3. There is an IUD in place. Dictated by: Dictated on workstation # [id number]
== END | disposition home or self-care (01) ==
LOC: EDUNIT# 23:06 → ER 23:09
DX: L03.317 Cellulitis of buttock (principal); G43.909 Migraine, unspecified, not intractable, without status migrainosus; K21.9 Gastro-esophageal reflux disease without esophagitis; F41.9 Anxiety disorder, unspecified; F32.9 Major depressive disorder, single episode, unspecified; F15.10 Other stimulant abuse, uncomplicated; F17.210 Nicotine dependence, cigarettes, uncomplicated; Z86.14 Personal history of Methicillin resistant Staphylococcus aureus infection; Z97.5 Presence of (intrauterine) contraceptive device; Z82.49 Family history of ischemic heart disease and other diseases of the circulatory system; Z88.0 Allergy status to penicillin; Z79.52 Long term (current) use of systemic steroids; Z98.890 Other specified postprocedural states
CPT/HCPCS: 72192; 96374; 96375

== ENCOUNTER 2019-01-19 21:29 | Emergency (ER) | payer SELFPAY ==
[~2019-01-19] VITALS: Ht 167.6 cm; Wt 54.4 kg
[~2019-01-19 21:29] MED LIST changes: -KETOROLAC 30 MG/ML VIAL IVP ONE; -RX-TRAMADOL 50 MG (ULTRAM) TAB PPK#4 PO STA; -RX-TRIMETH/SULFA. 160-800 MG (BACTRIM DS) TAB PPK#2 PO STA; -TRIM/SULFAMETH 160/800 (SEPTRA DS) TAB PO ONE; -VANCOMYCIN INJECTION 1,000 MG in NS (IVPB) 250 ML IV ONE; -methylPREDNISolone 125 MG (Solu-MEDROL) VIAL IVP ONE
--- NOTE | 2019-01-19 21:38 | NUR ---
PT HERE BY SELF ALERT [facility] 15. 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 BLEEDING CONTROLLED WITH DIRECT PRESSURE BY PT. PT RELATES LAST TETANUS EITHER 2012 OR 2015. ON EXAM PT HAS LACERATION LEFT MIDDLE FINGER INNER MEDIAL CUTICLE AND LACERATION LEFT RING FINGER DISTAL KNUCKLE. POSITIVE PULSE AND SENSATION LEFT HAND. DONE BRIDGER PT AT 2144.
--- NOTE | 2019-01-19 21:54 | ED Upper Extremity ---
General Stated Complaint: L HAND LAC Source: patient Exam Limitations: no limitations History of Present Illness Date Seen by Provider: Jan 19, 2019 Time Seen by Provider: 21:42 Initial Comments The patient presents to the ER by private conveyance with chief complaint she has lacerated her left hand third and fourth digits middle phalanges and distal phalange E across the fingernail respectively. She was using a saw blade attached to a Gremmel tool cutting on some wood and it slipped off and ran across the dorsum of her fingers. She got the bleeding to stop. She has full range of motion in her hands. She says the pain is minimal. She has not taken anything for it. She thinks her tetanus shot was between 2012 and 2015. Allergies and Home Medications Allergies Coded Allergies: Penicillins (Verified Allergy, Severe, HIVES, 02/05/12) Home Medications Cephalexin 500 Mg Capsule, 500 MG PO QID Prescribed by: KIEL ACOSTA on 03/18/17 0007 Docusate Sodium 100 Mg Capsule, 100 MG PO BID PRN for CONSTIPATION Prescribed by: PRETTY KWON on 09/04/15 1722 Ferrous Sulfate 325 Mg Tablet, 325 MG PO DAILY Prescribed by: ANDRADE COLEMAN on 09/05/15 0758 Hydrocodone Bit/Acetaminophen 1 Each Tablet, 1-2 TAB PO Q4H PRN for PAIN Prescribed by: PRETTY KWON on 09/04/15 172 Ibuprofen 600 Mg Tablet, 600 MG PO Q6H Prescribed by: PRETTY KWON on 09/04/15 1722 Ondansetron 4 Mg Tab.rapdis, 4 MG SL Q4H PRN for NAUSEA/VOMITING-1ST LINE Prescribed by: KIEL ACOSTA on 03/18/17 0004 Prednisone 10 Mg Tab, 40 MG PO DAILY Prescribed by: SUSANNA MURRY on 12/30/18 014 Vit No.78/Iron/FA 1 Each Tablet, 1 EACH PO DAILY, (Reported) Sulfamethoxazole/Trimethoprim 1 Each Tablet, 2 EACH PO BID Prescribed by: SUSANNA MURRY on 12/30/18 014 Sulfamethoxazole/Trimethoprim 1 Each Tablet, 1 EACH PO BID Prescribed by: DINORA QUINN on 01/19/19 2201 Patient Home Medication List Home Medication List Reviewed: Yes Review of Systems Constitutional: No chills, No diaphoresis EENTM: No ear discharge, No ear pain Respiratory: No cough, No short of breath Cardiovascular: No chest pain, No edema Past Mfshnvs-Ynvkvu-Ejwses Hx Patient Social History Alcohol Use: Denies Use Recreational Drug Use: No Drug of Choice: TESTED + FOR METH/ AMPHETAMINES ON 12/30/18 Smoking Status: Current Everyday Smoker Type Used: Cigarettes Recent Foreign Travel: No Contact w/Someone Who Travel: No Immunizations Up To Date Tetanus Booster (TDap): More than 5yrs PED Vaccines UTD: Yes Date of Influenza Vaccine: Jul 08, 2015 Past Medical History Surgeries: Yes ( X 2 ) Section Respiratory: No Cardiac: No Neurological: Yes Headaches /Migraines Reproductive Disorders: No Female Reproductive Disorders: Denies 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 oz. 56.156884lq; 27.66 BMI Method:Stated General Appearance: WD/WN, mild distress HEENT: PERRL/EOMI, pharynx normal Neck: non-tender, full range of motion Cardiovascular: normal peripheral pulses, regular rate, rhythm Respiratory: no respiratory distress, no accessory muscle use Hand: laceration (linear laceration down to the extensor sheath on the third digit middle interphalangeal as well as the fourth digit distal phalange across the tip of the fingernail but not involving the cuticle.) Neurologic/Tendon: normal sensation, normal motor functions, tendon function deficit (unable to extend the distal phalange of the third digit left hand) Neurologic/Psychiatric: no motor/sensory deficits, alert, normal mood/affect, oriented x 3 Procedures/Interventions Wound Location: Upper Extremities Other Wound Location Left hand third digit dorsal, middle phalange Wound Length (cm): 2 Wound's Depth, Shape: linear, sub Q, tendon Wound Explored: no foreign body removed Irrigated w/ Saline (ccs): 30 Betadine Prep?: Yes (and chlorhexidine) Anesthesia: 1% Lidocaine (without epinephrine) Volume Anesthetic (ccs): 3 Wound Debrided: minimal Suture: Prolene Suture Size: 4-0 Number of Sutures: 3 Sterile Dressing Applied?: Yes Progress Wound was thoroughly cleaned and then a digital block was applied using 1% lidocaine. The wound was numb we reapproximated the skin edges and stitched them together using simple interrupted stitches 3. Wound Location: Upper Extremities Wound Length (cm): 1.5 Wound's Depth, Shape: linear, nail-avulsed (distal tip of the nail not in volving the cuticle), sub Q Wound Explored: no foreign body removed Irrigated w/ Saline (ccs): 30 Betadine Prep?: Yes (and chlorhexidine prep) Anesthesia: 1% Lidocaine (without epinephrine) Volume Anesthetic (ccs): 2 Wound Debrided: minimal Suture: Prolene Suture Size: 4-0 Number of Sutures: 2 Progress Patient's finger was cleaned thoroughly using chlorhexidine and then soaked in Betadine. We put a digital block in place and clean the site. It was only into the subcutaneous fat pad under the distal tip of the finger nail. We stitched the distal tip of the finger with one simple interrupted suture and the proximal medial portion of the fingertip with one simple, interrupted suture using 4-0 Prolene. We then applied a small amount of cyanoacrylate between the finger fin gernail pieces to reapproximate the skin pieces. Patient tolerated the procedure well. Progress/Results/Core Measures Results/Orders My Orders Orders - DINORA QUINN DiphtPerttoby(Acell),Tet Adult (Boostrix (01/19/19 22:00) Sulfamethoxazole/Trimet Ds Tab (Bactrim (01/19/19 22:00) Medications Given in ED Current Medications Medications Dose Ordered Sig/Tom Route Start Time Stop Time Status Last Admin Dose Admin Diphtheria/ Tetanus/Acell Pertussis 0.5 ml ONCE ONCE IM 01/19/19 22:00 01/19/19 22:01 DC 01/19/19 22:05 0.5 ML Trimethoprim/ Sulfamethoxazole 1 ea ONCE ONCE PO 01/19/19 22:00 01/19/19 22:01 DC 01/19/19 22:05 1 EA Progress Progress Note : Time: 21:54 Progress Note Clean the wound thoroughly give her a tetanus shot start her on some prophylactic antibiotics and she should heal well. Departure Impression Primary Impression: Laceration of finger of left hand without foreign body with damage to nail Qualified Codes: S61.315A - Laceration without foreign body of left ring finger with damage to nail, initial encounter Additional Impression: Finger laceration involving tendon Qualified Codes: S61.219A - Laceration without foreign body of unspecified finger without damage to nail, initial encounter Disposition: 01 HOME, SELF-CARE Condition: Improved Departure-Patient Inst. Decision time for Depature: 22:43 Referrals: [facility] [place] (PCP/Family) Primary Care Physician MYNOR RICKETTS MD Patient Instructions: Laceration Repair With Stitches (DC) Add. Discharge Instructions: Return to the ER or your private doctor in 7-10 days to have the stitches out. Called Dr. RICKETTS, orthopedic surgery for reexamination of your possible tendon injury to finger Tuesday morning. For swelling elevate the hand above the level of your heart. For pain use Tylenol 1000 mg in addition to ibuprofen 800 mg every 8 hours as needed. Clean the wound with regular soap and water only. Keep clean dry dressing on it and change it daily or as often as necessary. You may use a thin layer of Vaseline or triple antibiotic ointment over the stitches to keep them from sticking to the dressing and keep the wound clean. Bactrim DS one tablet twice daily with food for the next 3 days to prevent infection. Scripts Sulfamethoxazole/Trimethoprim (Bactrim Ds Tablet) 1 Each Tablet 1 EACH PO BID for 3 Days, #6 TAB 0 Refills Prov: DINORA QUINN 01/19/19 Copy Copies To 1: MYNOR RICKETTS MD, TITUS J Jan 19, 2019 21:54
[2019-01-19] MEDS ORDERED: TRIM/SULFAMETH 160/800 (SEPTRA DS) TAB PO ONE (22:00)
[2019-01-19] MEDS ORDERED: TETANUS,DIPTH,PERTUSS P/F (BOOSTRIX) 0.5 ML VIAL IM ONE (22:00)
[2019-01-19] MEDS ORDERED: SULF1TAB35 PO (22:01)
[2019-01-19 22:52] VITALS: BP 118/78
--- NOTE | 2019-01-19 22:52 | NUR ---
SOMEONE ELSE D/CD PT.
--- NOTE | 2019-01-19 23:11 | NUR ---
SOMEONE ELSE DID POST SUTURES WOUND CARE AND D/CD PT.
== END 2019-01-19 22:55 | disposition home or self-care (01) ==
LOC: EDUNIT# 21:29 → ER 21:31
DX: S61.315A Laceration without foreign body of left ring finger with damage to nail, initial encounter (principal); S61.313A Laceration without foreign body of left middle finger with damage to nail, initial encounter; G43.909 Migraine, unspecified, not intractable, without status migrainosus; F41.9 Anxiety disorder, unspecified; F32.9 Major depressive disorder, single episode, unspecified; F17.210 Nicotine dependence, cigarettes, uncomplicated; Z97.5 Presence of (intrauterine) contraceptive device; Z98.890 Other specified postprocedural states; Z82.49 Family history of ischemic heart disease and other diseases of the circulatory system; Z88.0 Allergy status to penicillin; Z23 Encounter for immunization; Z79.52 Long term (current) use of systemic steroids; W31.2XXA Contact with powered woodworking and forming machines, initial encounter
CPT/HCPCS: 12031; 90715

== ENCOUNTER 2020-05-02 17:16 | Observation (INO) | payer SELFPAY ==
[~2020-05-02] VITALS: Ht 167.7 cm; Wt 61.1 kg
[2020-05-02] MEDS ORDERED: NS IV 1000 ML 1,000 ML IV SCH (17:45)
[2020-05-02] MEDS ORDERED: fentaNYL INJECTION 100 MCG/2 ML AMP IVP ONE ×2 (17:45→19:45)
--- NOTE | 2020-05-02 17:47 | ED Abdominal Pain ---
General Stated Complaint: UPPER & LOWER ABDOMINAL PAIN Source of Information: Patient Exam Limitations: No Limitations History of Present Illness Date Seen by Provider: May 02, 2020 Time Seen by Provider: 17:45 Initial Comments To ER with reports of upper and lower abdominal pain that began about 1 or 2 AM last night. No nausea or vomiting but she has had worsening of pain, mostly on the right side and suprapubic locations. Pain is worsened by coughing and moving. Timing/Duration: 12-24 Hours Severity/Quality: Moderate, Severe Location: RLQ, Generalized Abdomen, Suprapubic Radiation: No Radiation Activities at Onset: None Associated Symptoms: Denies Symptoms Allergies and Home Medications Allergies Coded Allergies: Penicillins (Verified Allergy, Severe, HIVES, 02/05/12) Home Medications Cephalexin 500 Mg Capsule, 500 MG PO QID Prescribed by: KIEL ACOSTA on 03/18/17 0007 Docusate Sodium 100 Mg Capsule, 100 MG PO BID PRN for CONSTIPATION Prescribed by: PRETTY KWON on 09/04/15 172 Ferrous Sulfate 325 Mg Tablet, 325 MG PO DAILY Prescribed by: ANDRADE COLEMAN on 09/05/15 0758 Hydrocodone Bit/Acetaminophen 1 Each Tablet, 1-2 TAB PO Q4H PRN for PAIN Prescribed by: PRETTY KWON on 09/04/15 172 Ibuprofen 600 Mg Tablet, 600 MG PO Q6H Prescribed by: PRETTY KWON on 09/04/15 172 Ondansetron 4 Mg Tab.rapdis, 4 MG SL Q4H PRN for NAUSEA/VOMITING-1ST LINE Prescribed by: KIEL ACOSTA on 03/18/17 0004 Prednisone 10 Mg Tab, 40 MG PO DAILY Prescribed by: SUSANNA MURRY on 12/30/18 014 Vit No.78/Iron/FA 1 Each Tablet, 1 EACH PO DAILY, (Reported) Sulfamethoxazole/Trimethoprim 1 Each Tablet, 2 EACH PO BID Prescribed by: SUSANNA MURRY on 12/30/18 014 Sulfamethoxazole/Trimethoprim 1 Each Tablet, 1 EACH PO BID Prescribed by: DINORA QUINN on 01/19/19 2201 Patient Home Medication List Home Medication List Reviewed: Yes Review of Systems Review of Systems Constitutional: see HPI EENTM: No Symptoms Reported Respiratory: No Symptoms Reported Cardiovascular: No Symptoms Reported Gastrointestinal: See HPI, Abdominal Pain Genitourinary: No Symptoms Reported Musculoskeletal: no symptoms reported Skin: no symptoms reported Psychiatric/Neurological: No Symptoms Reported Endocrine: No Symptoms Reported Hematologic/Lymphatic: No Symptoms Reported Past Vyfgnoe-Ffbfhv-Pjnlqo Hx Patient Social History Drug of Choice: TESTED + FOR METH/ AMPHETAMINES ON 12/30/18 Type Used: Cigarettes Recent Foreign Travel: No Contact w/Someone Who Travel: No Immunizations Up To Date Tetanus Booster (TDap): More than 5yrs PED Vaccines UTD: Yes Date of Influenza Vaccine: Jul 08, 2015 Past Medical History Surgeries: Yes ( X 2 ) Section Respiratory: No Cardiac: No Neurological: Yes Headaches /Migraines Reproductive Disorders: No Female Reproductive Disorders: Denies 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 Sexually Transmitted Disease: No HIV/AIDS: No Genitourinary: No Gastrointestinal: Yes ( INDUCED-TAKE TUMS) Gastroesophageal Reflux Musculoskeletal: No Endocrine: No Loss of Vision: Bilateral Hearing Impairment: Denies Cancer: No Psychosocial: Yes Anxiety, Depression Integumentary: No Blood Disorders: No Adverse Reaction/Blood Tranf: No Family Medical History Hypertension 19 FATHER Physical Exam Vital Signs Vital Signs - First Documented 05/02/20 17:35 Temp 37.7 Pulse 110 Resp 24 B/P (MAP) 108/83 (91) Pulse Ox 100 O2 Delivery Room Air Capillary Refill : Height/Weight/BMI Height: 5'6.00" Weight: 120lbs. oz. 54.931878bf; 27.66 BMI Method:Stated General Appearance: WD/WN, no apparent distress HEENT: PERRL/EOMI, normal ENT inspection Respiratory: no respiratory distress, no accessory muscle use Gastrointestinal: normal bowel sounds, soft, tenderness Extremities: normal range of motion, non-tender, normal inspection Neurologic/Psychiatric: alert, normal mood/affect, oriented x 3 Skin: normal color, warm/dry Procedures/Interventions Suture Size: 4-0 Progress/Results/Core Measures Results/Orders Lab Results Laboratory Tests Test 05/02/20 17:36 05/02/20 17:45 Range/Units Urine Color YELLOW Urine Clarity CLEAR Urine pH 7.0 5-9 Urine Specific [place] 1.015 L 1.016-1.022 Urine Protein TRACE H NEGATIVE Urine Glucose (UA) NEGATIVE NEGATIVE Urine Ketones TRACE H NEGATIVE Urine Nitrite NEGATIVE NEGATIVE Urine Bilirubin NEGATIVE NEGATIVE Urine Urobilinogen 4.0 < = 1.0 MG/DL Urine Leukocyte Esterase 1+ H NEGATIVE Urine RBC (Auto) NEGATIVE NEGATIVE Urine RBC RARE /HPF Urine WBC 10-25 H /HPF Urine Squamous Epithelial Cells 2-5 /HPF Urine Crystals NONE /LPF Urine Bacteria TRACE /HPF Urine Casts NONE /LPF Urine Mucus MODERATE H /LPF Urine Culture Indicated YES Urine Opiates Screen NEGATIVE NEGATIVE Urine Oxycodone Screen NEGATIVE NEGATIVE Urine Methadone Screen NEGATIVE NEGATIVE Urine Propoxyphene Screen NEGATIVE NEGATIVE Urine Barbiturates Screen NEGATIVE NEGATIVE Ur Tricyclic Antidepressants Screen NEGATIVE NEGATIVE Urine Phencyclidine Screen NEGATIVE NEGATIVE Urine Amphetamines Screen POSITIVE H NEGATIVE Urine Methamphetamines Screen POSITIVE H NEGATIVE Urine Benzodiazepines Screen NEGATIVE NEGATIVE Urine Cocaine Screen NEGATIVE NEGATIVE Urine Cannabinoids Screen NEGATIVE NEGATIVE White Blood Count 23.2 H 4.3-11.0 10^3/uL Red Blood Count 5.12 H 3.80-5.11 10^6/uL Hemoglobin 15.2 11.5-16.0 g/dL Hematocrit 45 35-52 % Mean Corpuscular Volume 88 80-99 fL Mean Corpuscular Hemoglobin 30 25-34 pg Mean Corpuscular Hemoglobin Concent 34 32-36 g/dL Red Cell Distribution Width 12.7 10.0-14.5 % Platelet Count 322 130-400 10^3/uL Mean Platelet Volume 10.9 9.0-12.2 fL Immature Granulocyte % (Auto) 1 % Neutrophils (%) (Auto) 92 H 42-75 % Lymphocytes (%) (Auto) 5 L 12-44 % Monocytes (%) (Auto) 3 0-12 % Eosinophils (%) (Auto) 0 0-10 % Basophils (%) (Auto) 0 0-10 % Neutrophils # (Auto) 21.3 H 1.8-7.8 10^3/uL Lymphocytes # (Auto) 1.1 1.0-4.0 10^3/uL Monocytes # (Auto) 0.7 0.0-1.0 10^3/uL Eosinophils # (Auto) 0.0 0.0-0.3 10^3/uL Basophils # (Auto) 0.0 0.0-0.1 10^3/uL Immature Granulocyte # (Auto) 0.1 0.0-0.1 10^3/uL Neutrophils % (Manual) 91 % Lymphocytes % (Manual) 5 % Monocytes % (Manual) 0 % Eosinophils % (Manual) 0 % Basophils % (Manual) 0 % Band Neutrophils 3 % Reactive Lymphocytes 1 % Toxic Granulation 1+ Sodium Level 133 L 135-145 MMOL/L Potassium Level 4.1 3.6-5.0 MMOL/L Chloride Level 100 98-107 MMOL/L Carbon Dioxide Level 20 L 21-32 MMOL/L Anion Gap 13 5-14 MMOL/L Blood Urea Nitrogen 13 7-18 MG/DL Creatinine 0.95 0.60-1.30 MG/DL Estimat Glomerular Filtration Rate > 60 BUN/Creatinine Ratio 14 Glucose Level 101 70-105 MG/DL Calcium Level 9.1 8.5-10.1 MG/DL Corrected Calcium 8.7 8.5-10.1 MG/DL Total Bilirubin 1.7 H 0.1-1.0 MG/DL Aspartate Amino Transf (AST/SGOT) 22 5-34 U/L Alanine Aminotransferase (ALT/SGPT) 19 0-55 U/L Alkaline Phosphatase 88 40-136 U/L Total Protein 8.3 H 6.4-8.2 GM/DL Albumin 4.5 3.2-4.5 GM/DL Lipase 14 8-78 U/L My Orders Orders - JUAN J STANLEY [employer]OTWEAR PRODUCTION MACHINE OPERATOR Cbc With Automated Diff (05/02/20 17:38) Urine Bedside (05/02/20 17:38) Comprehensive Metabolic Panel (05/02/20 17:38) Lipase (05/02/20 17:38) Ed Iv/Invasive Line Start (05/02/20 17:38) Ua Culture If Indicated (05/02/20 17:43) Drug Screen Stat (Urine) (05/02/20 17:43) Ed Iv/Invasive Line Start (05/02/20 17:43) Ns Iv 1000 Ml (Sodium Chloride 0.9%) (05/02/20 17:45) Fentanyl Injection (Sublimaze Injection (05/02/20 17:45) Ct Abd/Pelv W (Appendicitis) (05/02/20 17:43) Iohexol Injection (Omnipaque 350 Mg/Ml 1 (05/02/20 18:00) Received Contrast (Hold Metformin- Contr (05/02/20 18:00) Ns (Ivpb) (Sodium Chloride 0.9% Ivpb Bag (05/02/20 18:00) Urine Culture (05/02/20 17:36) Manual Differential (05/02/20 17:45) Blood Culture (05/02/20 18:21) Lactic Acid Analyzer (05/02/20 18:21) Medications Given in ED Current Medications Medications Dose Ordered Sig/Tom Route Start Time Stop Time Status Last Admin Dose Admin Fentanyl Citrate 50 mcg ONCE ONCE IVP 05/02/20 17:45 05/02/20 17:46 DC 05/02/20 17:55 50 MCG Iohexol 100 ml ONCE ONCE IV 05/02/20 18:00 05/02/20 18:01 DC 05/02/20 18:03 74 ML Sodium Chloride 100 ml ONCE ONCE IV 05/02/20 18:00 05/02/20 18:01 DC 05/02/20 18:03 80 ML Vital Signs/I&O 05/02/20 17:35 Temp 37.7 Pulse 110 Resp 24 B/P (MAP) 108/83 (91) Pulse Ox 100 O2 Delivery Room Air Diagnostic Imaging Diagonstic Imaging: Xray Comments NAME: [facility] REC#: [id number] PT STATUS: REG ER : 1995 PHYSICIAN: JUAN J STANLEY FOOTWEAR PRODUCTION MACHINE OPERATOR ADMIT DATE: 05/02/20/ER Draft Date of Exam:05/02/20 CT ABD/PELV W (APPENDICITIS) PROCEDURE: CT abdomen and pelvis with contrast, rule out appendicitis. TECHNIQUE: Multiple contiguous axial images were obtained through the abdomen and pelvis after the administration of intravenous contrast. All CT scans use one or more of the following dose optimizing techniques: automated exposure control, MA and/or KvP adjustment based on patient size and exam type or iterative reconstruction. INDICATION: Right lower quadrant pain with diarrhea times approximately 15-16 hours. CORRELATION STUDY: 03/17/2017 FINDINGS: LOWER THORAX: Clear. LIVER: Unremarkable. GALLBLADDER: Present and unremarkable. No bile duct dilatation. SPLEEN: Enlarged at 16 cm. PANCREAS: Unremarkable. ADRENAL GLANDS: Unremarkable. KIDNEYS: Normal configuration. No calcification or obstruction. ABDOMINAL AORTA: Unremarkable, nonaneurysmal. GASTROINTESTINAL TRACT: Small amount of fluid within the stomach. There is fluid and gas distention of a large portion of the small bowel. Some areas of asymmetric a small bowel wall thickening are noted, particularly in the lower abdomen and pelvis. The terminal ileum is rather significantly distended and fluid filled. What appears to be a portion of the appendix projecting posteriorly is grossly unremarkable. Gas and liquid through a large portion of the colon compatible with diarrheal state, somewhat more thickened at the level of the rectum. URINARY BLADDER: Essentially decompressed and emptied. REPRODUCTIVE: Intrauterine contraceptive device is present. OSSEOUS STRUCTURES: No acute abnormality. OTHER: Trace amount of pelvic fluid. IMPRESSION: 1. There is rather prominent fluid and gas distention with what appears to be hyperemia and thickening of small bowel segments particularly in the lower abdomen and pelvis. Features favoring probable nonspecific enteritis could be infectious or inflammatory in etiology. 2. While the appendix is not well visualized, there is no definitive CT findings to suggest acute appendicitis. 3. Splenomegaly. Dictated on workstation # [id number] Dict: 05/02/201809 Trans: 05/02/201826 [facility] [id number] Interpreted by: ABBY LUO DO Electronically signed by: Departure Communication (Admissions) Time/Spoke to Admitting Phy: 18:[address] BANUELOS, we will admit on antibiotics and pain medication, reevaluate in the morning. Impression Primary Impression: Abdominal pain Qualified Codes: R10.31 - Right lower quadrant pain Additional Impressions: Leukocytosis Qualified Codes: D72.829 - Elevated white blood cell count, unspecified UTI (urinary tract infection) Qualified Codes: N30.00 - Acute cystitis without hematuria Disposition: ADMITTED INPATIENT Condition: Stable Admissions Decision to Admit Reason: Admit from ER (General) Decision to Admit/Date: May 02, 2020 Time/Decision to Admit Time: 18:32 Departure-Patient Inst. Referrals: [facility] (PCP/Family) Primary Care Physician JUAN J STANLEY APRN May 02, 2020 17:47
[2020-05-02 17:49] LABS: BILIRUBIN,URINE NEGATIVE (NEGATIVE); CLARITY,URINE CLEAR; COLOR,URINE YELLOW; GLUCOSE, URINE (UA) NEGATIVE (NEGATIVE); KETONES,URINE TRACE (NEGATIVE); LEUKOCYTE ESTERASE ,URINE 1+ (NEGATIVE); NITRITE,URINE NEGATIVE (NEGATIVE); PROTEIN,URINE TRACE (NEGATIVE)
[2020-05-02 17:54] LABS: BASOPHILS % (AUTO) 0 % (0-10); EOSINOPHILS % (AUTO) 0 % (0-10); HEMATOCRIT 45 % (35-52); HEMOGLOBIN 15.2 g/dL (11.5-16.0); LYMPHOCYTES # (AUTO) 1.1 10^3/uL (1.0-4.0); LYMPHOCYTES % (AUTO) 5 % (12-44); MEAN CORPUSCULAR HEMOGLOBIN 30 pg (25-34); MEAN CORPUSCULAR HGB CONC 34 g/dL (32-36); MEAN CORPUSCULAR VOLUME 88 fL (80-99); MEAN PLATELET VOLUME 10.9 fL (9.0-12.2); MONOCYTES # (AUTO) 0.7 10^3/uL (0.0-1.0); MONOCYTES % (AUTO) 3 % (0-12); NEUTROPHILS # (AUTO) 21.3 10^3/uL (1.8-7.8); NEUTROPHILS % (AUTO) 92 % (42-75); PLATELET COUNT 322 10^3/uL (130-400); WHITE BLOOD COUNT 23.2 10^3/uL (4.3-11.0)
[2020-05-02 17:54] LABS: BACTERIA,URINE TRACE /HPF; RBC,URINE RARE /HPF
[2020-05-02 17:59] LABS: AMPHETAMINE SCREEN, URINE POSITIVE (NEGATIVE); BARBITURATE SCREEN URINE NEGATIVE (NEGATIVE); BENZODIAZEPINES SCREEN URINE NEGATIVE (NEGATIVE); CANNABINOID SCREEN, URINE NEGATIVE (NEGATIVE); COCAINE SCREEN URINE NEGATIVE (NEGATIVE); METHADONE STAT NEGATIVE (NEGATIVE); METHAMPHETAMINE SCREEN URINE S POSITIVE (NEGATIVE); OPIATE SCREEN URINE NEGATIVE (NEGATIVE); OXYCODONE STAT NEGATIVE (NEGATIVE); PROPOXYPHENE STAT NEGATIVE (NEGATIVE); TRICYCLIC ANTIDEPRESSANTS SCRE NEGATIVE (NEGATIVE)
[2020-05-02] MEDS ORDERED: HOLD METFORMIN - RECEIVED CONTRAST 20 ML VIAL IV SCH (18:00)
[2020-05-02] MEDS ORDERED: IOHEXOL 350 MG/ML 100 ML (OMNIPAQUE 350) VIAL IV ONE (18:00)
[2020-05-02] MEDS ORDERED: NS 100 ML (IVPB) BAG IV ONE (18:00)
[2020-05-02 18:04] LABS: BAND NEUTROPHILS 3 %; BASOPHILS % (MANUAL) 0 %; EOSINOPHILS % (MANUAL) 0 %; LYMPHOCYTES % (MANUAL) 5 %; MONOCYTES % (MANUAL) 0 %; NEUTROPHILS % (MANUAL) 91 %
[2020-05-02 18:05] LABS: REACTIVE LYMPHOCYTES 1 %; TOXIC GRANULATION/VACUOLAZATIO 1+
[2020-05-02 18:06] LABS: ALBUMIN 4.5 GM/DL (3.2-4.5)
[2020-05-02 18:07] LABS: CHLORIDE 100 MMOL/L (98-107); POTASSIUM 4.1 MMOL/L (3.6-5.0); SODIUM 133 MMOL/L (135-145)
[2020-05-02 18:08] LABS: CALCIUM 9.1 MG/DL (8.5-10.1)
[2020-05-02 18:09] LABS: GLUCOSE 101 MG/DL (70-105); TOTAL PROTEIN 8.3 GM/DL (6.4-8.2)
[2020-05-02 18:10] LABS: CARBON DIOXIDE 20 MMOL/L (21-32)
[2020-05-02 18:11] LABS: BILIRUBIN,TOTAL 1.7 MG/DL (0.1-1.0)
[2020-05-02 18:12] LABS: ALKALINE PHOSPHATASE 88 U/L (40-136)
[2020-05-02 18:13] LABS: CREATININE SERUM 0.95 MG/DL (0.60-1.30); GFR ESTIMATED > 60
[2020-05-02 18:14] LABS: BUN/CREATININE RATIO 14
[2020-05-02 18:16] LABS: ALANINE AMINOTRANSFERASE 19 U/L (0-55); LIPASE 14 U/L (8-78)
--- NOTE | 2020-05-02 18:27 | Diagnostic Imaging Report ---
PROCEDURE: CT abdomen and pelvis with contrast, rule out appendicitis. TECHNIQUE: Multiple contiguous axial images were obtained through the abdomen and pelvis after the administration of intravenous contrast. All CT scans use one or more of the following dose optimizing techniques: automated exposure control, MA and/or KvP adjustment based on patient size and exam type or iterative reconstruction. INDICATION: Right lower quadrant pain with diarrhea times approximately 15-16 hours. CORRELATION STUDY: 03/17/2017 FINDINGS: LOWER THORAX: Clear. LIVER: Unremarkable. GALLBLADDER: Present and unremarkable. No bile duct dilatation. SPLEEN: Enlarged at 16 cm. PANCREAS: Unremarkable. ADRENAL GLANDS: Unremarkable. KIDNEYS: Normal configuration. No calcification or obstruction. ABDOMINAL AORTA: Unremarkable, nonaneurysmal. GASTROINTESTINAL TRACT: Small amount of fluid within the stomach. There is fluid and gas distention of a large portion of the small bowel. Some areas of asymmetric a small bowel wall thickening are noted, particularly in the lower abdomen and pelvis. The terminal ileum is rather significantly distended and fluid filled. What appears to be a portion of the appendix projecting posteriorly is grossly unremarkable. Gas and liquid through a large portion of the colon compatible with diarrheal state, somewhat more thickened at the level of the rectum. URINARY BLADDER: Essentially decompressed and emptied. REPRODUCTIVE: Intrauterine contraceptive device is present. OSSEOUS STRUCTURES: No acute abnormality. OTHER: Trace amount of pelvic fluid. IMPRESSION: 1. There is rather prominent fluid and gas distention with what appears to be hyperemia and thickening of small bowel segments particularly in the lower abdomen and pelvis. Features favoring probable nonspecific enteritis could be infectious or inflammatory in etiology. 2. While the appendix is not well visualized, there is no definitive CT findings to suggest acute appendicitis. 3. Splenomegaly. Dictated by: Dictated on workstation # [id number]
[2020-05-02] MEDS ORDERED: cefTRIAXone FOR IV USE 1,000 MG in WATER (STERILE) FOR INJECTION 10 ML IV ONE (18:45)
--- NOTE | 2020-05-02 20:40 | NUR ---
DALE BEDOYA admitted to room 423-1, with an admitting diagnosis of ABD PAIN,UTI, on 05/02/20 from ED via WHEELCHAIR, accompanied by STAFF.DALE BEDOYA introduced to surroundings, call light, bed controls, phone, TV, temperature control, lights, meal times, smoking policy, visitor policy, side rail policy, bathrooms and showers. Patient Rights given to patient in the handbook. DALE BEDOYA verbalizes understanding that [facility] is not responsible for the loss or damage to any personal effects or valuables that are kept in the patients posession during their hospitalization. DALE BEDOYA verbalizes understanding of Interdisciplinary Patient Education. Patient and/or family were informed about the Rapid Response Team and its purpose.
[2020-05-02] MEDS ORDERED: LACTATED RINGERS 1,000 ML IV ONE (20:44)
[2020-05-02 20:45] VITALS: BP 103/70
--- NOTE | 2020-05-02 21:10 | HISTORY AND PHYSICAL ---
DATE OF SERVICE: ATTENDING LOAN TELLER: [facility]. HISTORY OF PRESENT ILLNESS: The patient is a 24-year-old female, who presented to the Emergency Department with a 1-day history of pain more in the suprapubic region. She states that the pain worsened over time. She states that she has had some mild nausea; however, no vomiting. She does not report any diarrhea nor constipation as well as no red blood per rectum nor any dark tarry stools. She does have a history of drug abuse and is currently positive for methamphetamine as well as amphetamine. A CT scan was performed, which did show short segmental areas of small bowel thickening as well as the terminal ileum. PAST MEDICAL HISTORY: Gastroesophageal reflux disease, migraine headaches, anxiety, history of drug abuse. PAST SURGICAL HISTORY: section x2. ALLERGIES: PENICILLIN. MEDICATIONS: Iron 325 mg daily, prednisone 10 mg daily, Bactrim b.i.d. SOCIAL HISTORY: Positive smoke. Positive methamphetamine. FAMILY HISTORY: Noncontributory. VITAL SIGNS: Temperature 37.7, blood pressure 101/74, pulse 111, respirations 20, pulse ox 97% on room air. REVIEW OF SYSTEMS: Well-nourished female, currently slightly guarded secondary to abdominal pain. She does not report any cough or sputum production. Intermittent nausea, no vomiting. Crampy suprapubic abdominal pain. She does not report any diarrhea nor constipation as well as no red blood per rectum nor any dark tarry stools. No fever, chills, no recent inadvertent weight loss. All other review of systems negative. PHYSICAL EXAMINATION: CHEST: Good breath sounds bilaterally. HEART: Regular, no murmurs. EXTREMITIES: No lower extremity edema, negative Homans sign. HEENT: No scleral icterus. NECK: No cervical lymphadenopathy. ABDOMEN: Soft, nondistended. There is pain in the lower quadrants of the abdomen with no peritoneal signs. SKIN: Warm, dry. LABORATORY DATA: WBC 23.2, hemoglobin 15.2, hematocrit 45, platelets 322, total bilirubin 1.7. Urinalysis positive for leukocyte esterase as well as bacteria. Drug screen was positive for methamphetamine as well as amphetamine. ASSESSMENT AND PLAN: A 24-year-old female with enteritis, which may be secondary to a bacterial overgrowth and previously being on antibiotics. She also is positive for methamphetamine as well as amphetamine and due to the severe vasoconstriction caused by this, this may also be the etiology for the enteritis. We will proceed with frequent physical examination as well as bowel rest with a clear liquid diet. We will also start her on ciprofloxacin and Flagyl. We will also proceed with monitoring serial laboratory work as well. Job ID: [id number] DocumentID: [id number] Dictated Date: 05/02/2020 20:57:57 Candy Supervisor Date: 05/02/2020 21:09:37 Dictated By: MICHELLE BANUELOS MD
[2020-05-02] MEDS ORDERED: ONDANSETRON 4 MG/2 ML (SDV) Z0FRAN IV PRN (21:30)
[2020-05-02] MEDS ORDERED: PROMETHAZINE INJ 25 MG/ML (PHENERGAN) AMP IVP PRN (21:30)
[2020-05-02] MEDS: LACTATED RINGERS 1,000 ML IV SCH (21:33)
[2020-05-02] MEDS: metroNIDAZOLE 500MG/100ML IVPB 100 ML IV SCH (21:33)
[2020-05-02] MEDS: CIPROFLOXACIN IV 400MG/200ML 200 ML IV SCH (23:25)
[2020-05-02] MEDS: fentaNYL INJECTION 100 MCG/2 ML AMP IVP PRN (23:28)
[2020-05-03] VITALS: BP 104/60
[2020-05-03 04:00] VITALS: BP 96/62
[2020-05-03] MEDS: LACTATED RINGERS 1,000 ML IV SCH ×4 (05:26→20:46)
[2020-05-03 06:28] LABS: BASOPHILS # (AUTO) 0.1 10^3/uL (0.0-0.1); BASOPHILS % (AUTO) 0 % (0-10); EOSINOPHILS % (AUTO) 0 % (0-10); HEMATOCRIT 36 % (35-52); HEMOGLOBIN 11.9 g/dL (11.5-16.0); LYMPHOCYTES # (AUTO) 1.6 10^3/uL (1.0-4.0); LYMPHOCYTES % (AUTO) 8 % (12-44); MEAN CORPUSCULAR HEMOGLOBIN 30 pg (25-34); MEAN CORPUSCULAR HGB CONC 34 g/dL (32-36); MEAN CORPUSCULAR VOLUME 89 fL (80-99); MEAN PLATELET VOLUME 11.5 fL (9.0-12.2); MONOCYTES % (AUTO) 5 % (0-12); NEUTROPHILS # (AUTO) 18.1 10^3/uL (1.8-7.8); NEUTROPHILS % (AUTO) 87 % (42-75); PLATELET COUNT 268 10^3/uL (130-400); WHITE BLOOD COUNT 20.9 10^3/uL (4.3-11.0)
[2020-05-03 06:51] LABS: ALANINE AMINOTRANSFERASE 14 U/L (0-55); ALBUMIN 3.4 GM/DL (3.2-4.5); ALKALINE PHOSPHATASE 86 U/L (40-136); BILIRUBIN,TOTAL 1.6 MG/DL (0.1-1.0); BUN/CREATININE RATIO 12; CALCIUM 8.2 MG/DL (8.5-10.1); CARBON DIOXIDE 20 MMOL/L (21-32); CHLORIDE 103 MMOL/L (98-107); CREATININE SERUM 0.78 MG/DL (0.60-1.30); GFR ESTIMATED > 60; GLUCOSE 87 MG/DL (70-105); POTASSIUM 3.8 MMOL/L (3.6-5.0); SODIUM 134 MMOL/L (135-145); TOTAL PROTEIN 6.2 GM/DL (6.4-8.2)
[2020-05-03 06:54] LABS: BAND NEUTROPHILS 7 %; LYMPHOCYTES % (MANUAL) 11 %; MONOCYTES % (MANUAL) 5 %; NEUTROPHILS % (MANUAL) 77 %; TOXIC GRANULATION/VACUOLAZATIO 1+
[2020-05-03 08:00] VITALS: BP 98/62
[2020-05-03] MEDS: CIPROFLOXACIN IV 400MG/200ML 200 ML IV SCH ×2 (08:44→20:45)
[2020-05-03] MEDS: metroNIDAZOLE 500MG/100ML IVPB 100 ML IV SCH ×2 (08:44→19:48)
--- NOTE | 2020-05-03 11:13 | Progress Note ---
Subjective Date Seen by a Provider: May 03, 2020 Time Seen by a Provider: 10:35 Subjective/Events-last exam Patient seen with Dr. August. Patient reports doing better today and abdominal pain has improved. Denies any nausea or vomiting. Denies any fever or chills. Focused Exam Lactate Level 05/02/20 18:45: Lactic Acid Level 0.73 Objective Exam Vital Signs Date Time Temp Pulse Resp B/P (MAP) Pulse Ox O2 Delivery O2 Flow Rate FiO2 05/03/20 08:00 99 Room Air 05/03/20 08:00 35.5 78 16 98/62 (74) 99 Room Air 05/03/20 04:00 36.6 92 14 96/62 (73) 99 Room Air 05/03/20 00:00 36.6 112 18 104/60 (75) 98 Room Air 05/02/20 21:37 Room Air 05/02/20 20:45 37.2 112 18 103/70 99 Room Air 05/02/20 20:24 37.7 111 20 101/74 (91) 97 Room Air 05/02/20 17:35 37.7 110 24 108/83 (91) 100 Room Air I & O 05/03/20 07:00 Intake Total 1060 ml Output Total 300 ml Balance 760 ml Capillary Refill : Less Than 3 Seconds General Appearance: No Apparent Distress, WD/WN Neck: Normal Inspection, Supple Respiratory: Normal Breath Sounds, No Accessory Muscle Use, No Respiratory Distress Cardiovascular: Regular Rate, Rhythm, No Edema Gastrointestinal: normal bowel sounds, soft, tenderness (Minimal) Extremity: Normal Inspection, Normal Range of Motion Neurologic/Psychiatric: Alert, Oriented x3 Skin: Normal Color, Warm/Dry Results Lab Laboratory Tests 05/02/20 17:36: Urine Color YELLOW, Urine Clarity CLEAR, Urine pH 7.0, Urine Specific [place] 1.015L, Urine Protein TRACEH, Urine Glucose (UA) NEGATIVE, Urine Ketones TRACEH, Urine Nitrite NEGATIVE, Urine Bilirubin NEGATIVE, Urine Urobilinogen 4.0, Urine Leukocyte Esterase 1+H, Urine RBC (Auto) NEGATIVE, Urine RBC RARE, Urine WBC 10- 25H, Urine Squamous Epithelial Cells 2-5, Urine Crystals NONE, Urine Bacteria TRACE, Urine Casts NONE, Urine Mucus MODERATEH, Urine Culture Indicated YES, Urine Opiates Screen NEGATIVE, Urine Oxycodone Screen NEGATIVE, Urine Methadone Screen NEGATIVE, Urine Propoxyphene Screen NEGATIVE, Urine Barbiturates Screen NEGATIVE, Ur Tricyclic Antidepressants Screen NEGATIVE, Urine Phencyclidine Screen NEGATIVE, Urine Amphetamines Screen POSITIVEH, Urine Methamphetamines Screen POSITIVEH, Urine Benzodiazepines Screen NEGATIVE, Urine Cocaine Screen NEGATIVE, Urine Cannabinoids Screen NEGATIVE 05/02/20 17:45: White Blood Count 23.2H, Red Blood Count 5.12H, Hemoglobin 15.2, Hematocrit 45, Mean Corpuscular Volume 88, Mean Corpuscular Hemoglobin 30, Mean Corpuscular Hemoglobin Concent 34, Red Cell Distribution Width 12.7, Platelet Count 322, Mean Platelet Volume 10.9, Immature Granulocyte % (Auto) 1, Neutrophils (%) (Auto) 92H, Lymphocytes (%) (Auto) 5L, Monocytes (%) (Auto) 3, Eosinophils (%) (Auto) 0, Basophils (%) (Auto) 0, Neutrophils # (Auto) 21.3H, Lymphocytes # (Auto) 1.1, Monocytes # (Auto) 0.7, Eosinophils # (Auto) 0.0, Basophils # (Auto) 0.0, Immature Granulocyte # (Auto) 0.1, Neutrophils % (Manual) 91, Lymphocytes % (Manual) 5, Monocytes % (Manual) 0, Eosinophils % (Manual) 0, Basophils % (Manual) 0, Band Neutrophils 3, Reactive Lymphocytes 1, Toxic Granulation 1+, Sodium Level 133L, Potassium Level 4.1, Chloride Level 100, Carbon Dioxide Level 20L, Anion Gap 13, Blood Urea Nitrogen 13, Creatinine 0.95, Estimat Glomerular Filtration Rate > 60, BUN/Creatinine Ratio 14, Glucose Level 101, Calcium Level 9.1, Corrected Calcium 8.7, Total Bilirubin 1.7H, Aspartate Amino Transf (AST/SGOT) 22, Alanine Aminotransferase (ALT/SGPT) 19, Alkaline Phosphatase 88, Total Protein 8.3H, Albumin 4.5, Lipase 14 05/02/20 18:45: Lactic Acid Level 0.73 05/03/20 05:26: White Blood Count 20.9H, Red Blood Count 4.01, Hemoglobin 11.9#, Hematocrit 36, Mean Corpuscular Volume 89, Mean Corpuscular Hemoglobin 30, Mean Corpuscular Hemoglobin Concent 34, Red Cell Distribution Width 12.7, Platelet Count 268, Mean Platelet Volume 11.5, Immature Granulocyte % (Auto) 1, Neutrophils (%) (Auto) 87H, Lymphocytes (%) (Auto) 8L, Monocytes (%) (Auto) 5, Eosinophils (%) (Auto) 0, Basophils (%) (Auto) 0, Neutrophils # (Auto) 18.1H, Lymphocytes # (Auto) 1.6, Monocytes # (Auto) 1.0, Eosinophils # (Auto) 0.0, Basophils # (Auto) 0.1, Immature Granulocyte # (Auto) 0.1, Neutrophils % (Manual) 77, Lymphocytes % (Manual) 11, Monocytes % (Manual) 5, Band Neutrophils 7, Toxic Granulation 1+, Sodium Level 134L, Potassium Level 3.8, Chloride Level 103, Carbon Dioxide Level 20L, Anion Gap 11, Blood Urea Nitrogen 9, Creatinine 0.78, Estimat Glomerular Filtration Rate > 60, BUN/Creatinine Ratio 12, Glucose Level 87, Calcium Level 8.2L, Corrected Calcium 8.7, Total Bilirubin 1.6H, Aspartate Amino Transf (AST/SGOT) 12, Alanine Aminotransferase (ALT/SGPT) 14, Alkaline Phosphatase 86, Total Protein 6.2L, Albumin 3.4, Anisocytosis Assessment/Plan Assessment/Plan Assess & Plan/Chief Complaint A 24 year old female with enteritis secondary to bacterial overgrowth vs. vasoconstriction due to methamphetamine and amphetamine use VSS WBC 20.9 Continue IV abx, pain and nausea meds as needed AM labs Will start clear liquid diet Clinical Quality Measures DVT/VTE Risk/Contraindication: Risk Factor Score Per Nursin RFS Level Per Nursing on Admit: 2=Moderate ILENE BUCKNER YOUTH SERVICES SPECIALIST May 03, 2020 11:13
[2020-05-03 12:00] VITALS: BP 114/72
[2020-05-03 15:52] VITALS: BP 100/68
[2020-05-03 19:11] VITALS: BP 100/63
[2020-05-03] MEDS: fentaNYL INJECTION 100 MCG/2 ML AMP IVP PRN ×2 (19:45→22:36)
[2020-05-03] MEDS ORDERED: cefTRIAXone 1,000 MG/SWFI 10 ML IV PUSH IV SCH ×2 (21:00)
[2020-05-04] VITALS: BP 95/61
[2020-05-04] MEDS: fentaNYL INJECTION 100 MCG/2 ML AMP IVP PRN ×4 (01:54→09:41)
[2020-05-04] MEDS: LACTATED RINGERS 1,000 ML IV SCH ×2 (03:52→14:09)
[2020-05-04 04:00] VITALS: BP 104/70
[2020-05-04 05:00] LABS: BASOPHILS % (AUTO) 0 % (0-10); EOSINOPHILS # (AUTO) 0.1 10^3/uL (0.0-0.3); EOSINOPHILS % (AUTO) 1 % (0-10); HEMATOCRIT 33 % (35-52); HEMOGLOBIN 11.1 g/dL (11.5-16.0); LYMPHOCYTES # (AUTO) 1.3 10^3/uL (1.0-4.0); LYMPHOCYTES % (AUTO) 12 % (12-44); MEAN CORPUSCULAR HEMOGLOBIN 30 pg (25-34); MEAN CORPUSCULAR HGB CONC 34 g/dL (32-36); MEAN CORPUSCULAR VOLUME 89 fL (80-99); MEAN PLATELET VOLUME 10.9 fL (9.0-12.2); MONOCYTES # (AUTO) 0.9 10^3/uL (0.0-1.0); MONOCYTES % (AUTO) 8 % (0-12); NEUTROPHILS # (AUTO) 8.4 10^3/uL (1.8-7.8); NEUTROPHILS % (AUTO) 79 % (42-75); PLATELET COUNT 235 10^3/uL (130-400); WHITE BLOOD COUNT 10.7 10^3/uL (4.3-11.0)
[2020-05-04 05:09] LABS: ALBUMIN 3.1 GM/DL (3.2-4.5)
[2020-05-04 05:10] LABS: CHLORIDE 104 MMOL/L (98-107); POTASSIUM 3.6 MMOL/L (3.6-5.0); SODIUM 133 MMOL/L (135-145)
[2020-05-04 05:12] LABS: GLUCOSE 106 MG/DL (70-105); TOTAL PROTEIN 5.8 GM/DL (6.4-8.2)
[2020-05-04 05:13] LABS: CARBON DIOXIDE 21 MMOL/L (21-32)
[2020-05-04 05:14] LABS: BILIRUBIN,TOTAL 0.7 MG/DL (0.1-1.0)
[2020-05-04 05:15] LABS: ALKALINE PHOSPHATASE 69 U/L (40-136); CREATININE SERUM 0.76 MG/DL (0.60-1.30); GFR ESTIMATED > 60
[2020-05-04 05:16] LABS: BUN/CREATININE RATIO 11
[2020-05-04 05:18] LABS: ALANINE AMINOTRANSFERASE 10 U/L (0-55)
[2020-05-04 08:00] VITALS: BP 106/69
[2020-05-04] MEDS: metroNIDAZOLE 500MG/100ML IVPB 100 ML IV SCH (08:51)
[2020-05-04] MEDS: CIPROFLOXACIN IV 400MG/200ML 200 ML IV SCH (09:41)
--- NOTE | 2020-05-04 10:16 | Progress Note ---
Subjective Date Seen by a Provider: May 04, 2020 Time Seen by a Provider: 10:00 Subjective/Events-last exam Patient seen with Dr. August. Patient reports no pain since last night. Reports trying some solid foods yesterday evening but did have abdominal pain shortly after eating. Was placed back on clear liquids and tolerated this morning with no pain, nausea, or vomiting. Denies any fever/chills. Focused Exam Lactate Level 05/02/20 18:45: Lactic Acid Level 0.73 Objective Exam Vital Signs Date Time Temp Pulse Resp B/P (MAP) Pulse Ox O2 Delivery O2 Flow Rate FiO2 05/04/20 08:03 97 Room Air 05/04/20 08:00 37.4 90 18 106/69 (81) 99 Room Air 05/04/20 04:00 37.4 96 18 104/70 (81) 100 Room Air 05/04/20 00:00 37.6 106 18 95/61 (72) 100 Room Air 05/03/20 20:00 Room Air 05/03/20 19:11 38.3 102 16 100/63 (75) 100 Room Air 05/03/20 15:52 36.8 88 16 100/68 (79) 100 Room Air 05/03/20 12:00 36.6 91 20 114/72 (86) 100 Room Air I & O 05/04/20 07:00 Intake Total 3010 ml Balance 3010 ml Capillary Refill : Less Than 3 Seconds General Appearance: No Apparent Distress, WD/WN Neck: Normal Inspection, Supple Respiratory: Normal Breath Sounds, No Accessory Muscle Use, No Respiratory Distress Cardiovascular: Regular Rate, Rhythm, No Edema Gastrointestinal: normal bowel sounds, non tender, soft Extremity: Normal Inspection, Normal Range of Motion Neurologic/Psychiatric: Alert, Oriented x3 Skin: Normal Color, Warm/Dry Results Lab Laboratory Tests 05/04/20 04:46: White Blood Count 10.7, Red Blood Count 3.71L, Hemoglobin 11.1L, Hematocrit 33L, Mean Corpuscular Volume 89, Mean Corpuscular Hemoglobin 30, Mean Corpuscular Hemoglobin Concent 34, Red Cell Distribution Width 12.8, Platelet Count 235, Mean Platelet Volume 10.9, Immature Granulocyte % (Auto) 0, Neutrophils (%) (Auto) 79H, Lymphocytes (%) (Auto) 12, Monocytes (%) (Auto) 8, Eosinophils (%) (Auto) 1, Basophils (%) (Auto) 0, Neutrophils # (Auto) 8.4H, Lymphocytes # (Auto) 1.3, Monocytes # (Auto) 0.9, Eosinophils # (Auto) 0.1, Basophils # (Auto) 0.0, Immature Granulocyte # (Auto) 0.0, Sodium Level 133L, Potassium Level 3.6, Chloride Level 104, Carbon Dioxide Level 21, Anion Gap 8, Blood Urea Nitrogen 8, Creatinine 0.76, Estimat Glomerular Filtration Rate > 60, BUN/Creatinine Ratio 11, Glucose Level 106H, Calcium Level 8.0L, Corrected Calcium 8.7, Total Bilirubin 0.7, Aspartate Amino Transf (AST/SGOT) 9, Alanine Aminotransferase (ALT/SGPT) 10, Alkaline Phosphatase 69, Total Protein 5.8L, Albumin 3.1L Microbiology 05/02/20 Blood Culture - Preliminary, Resulted No growth Assessment/Plan Assessment/Plan Assess & Plan/Chief Complaint A 24 year old female with enteritis secondary to bacterial overgrowth vs. vasoconstriction due to methamphetamine and amphetamine use VSS WBC 10.7 Continue IV abx, pain and nausea meds as needed AM labs Will retry regular diet. Clinical Quality Measures DVT/VTE Risk/Contraindication: Risk Factor Score Per Nursin RFS Level Per Nursing on Admit: 2=Moderate ILENE BUCKNER CONE TENDER May 04, 2020 10:16
[2020-05-04 12:00] VITALS: BP 92/56
[2020-05-04] MEDS ORDERED: CIPR500S2 PO (15:14)
[2020-05-04] MEDS ORDERED: METR500T PO (15:14)
--- NOTE | 2020-05-04 15:15 | Discharge Inst-Surgical ---
D/C Lap Instructions-KIDO New, Converted, or Re-Newed RX: RX on Chart Follow Up with [facility] Activity as tolerated Low residue diet for next 6 weeks. Avoid Alcohol, Caffeine, Spicy [place] and Acid foods. Drink 64 fluid oz or more of fluids per day. Symptoms to Report: Fever over 101 degree F, Nausea/Vomiting If any problems/questions: Contact your physician or go to Emergency Room MICHELLE BANUELOS MD May 04, 2020 15:15
--- NOTE | 2020-05-04 15:36 | NUR ---
Patient requesting to be discharged home, states she has family issues she needs to deal with, Denies having any pain or nausea at this time, Dr August notified and gave order to discharge home with prescriptions.
--- NOTE | 2020-05-04 16:00 | NUR ---
DISCHARGE INSTRUCTIONS GIVEN, PRESCRIPTIONS GIVEN TO PATIENT, VERBALIZED UNDERSTANDING OF FOLLOW UP WITH [facility]. DISMISSED PER W/C.
[2020-05-04 16:21] VITALS: BP 92/56
--- NOTE | 2020-05-09 11:37 | Physician Query-Final Dx ---
DANIE BURTON 05/09/20 1137: Final Diagnosis Give Final Diagnosis Please give Final Diagnosis MICHELLE BANUELOS MD 05/10/20 1707: Final Diagnosis Give Final Diagnosis segmental enteritis. DANIE BURTON May 09, 2020 11:37 MICHELLE BANUELOS MD May 10, 2020 17:07
== END 2020-05-04 16:00 | disposition home or self-care (01) ==
LOC: EDUNIT# 17:16 → ER 17:18 → 4TH 19:34
PROVIDERS: ADMIT Surgery; ATTEND Surgery
DX: R10.31 Right lower quadrant pain (principal); D72.829 Elevated white blood cell count, unspecified; N30.00 Acute cystitis without hematuria
CPT/HCPCS: 74177; 80053 ×3; 80306; 81000; 83605; 83690; 84703; 85007 ×2; 85025; 85027 ×2; 87040; 87088; 99284; G0378; 36415; 96361; 96374; 96375; 96376

== ENCOUNTER 2020-11-30 02:57 | Emergency (ER) | payer SELFPAY ==
[~2020-11-30] VITALS: Ht 165.1 cm; Wt 61.2 kg
[~2020-11-30 02:57] MED LIST changes: +CIPR500S2 PO; +METR500T PO
[2020-11-30] MEDS ORDERED: DICYCLOMINE 10 MG/ML (BENTYL) 2 ML AMP IM STA (03:16)
--- NOTE | 2020-11-30 03:21 | ED Abdominal Pain ---
General Stated Complaint: SIDE PAIN, MIGRAINE Source of Information: Patient Exam Limitations: No Limitations History of Present Illness Date Seen by Provider: November 30, 2020 Time Seen by Provider: 03:10 Initial Comments Patient is a 25-year-old female who presents to the emergency department today with a chief complaint of epigastric and right upper quadrant abdominal pain. Patient has had onset of symptoms over the last 24 hours which is in turn produced a migraine. Patient complains of some nausea. She complains of pain that goes straight through to her back. She had an episode of this in May of last year and was told that it might be her gallbladder although she has never had an ultrasound of her gallbladder since that time. Patient denies any problems with bowel movements. She states she has felt hot but does not know if she is actually had a fever. She denies urinary complaints of dysuria, urgency frequency or hematuria. She has had 2 prior C-sections but no other abdominal surgeries. Moving around and palpation of the area makes the pain worse nothing has really made it any better. She currently rates her pain at a "7". All other review of systems reviewed and negative except as stated above. Timing/Duration: 1-2 Days Severity/Quality: Severe, Aching, Cramping Location: RUQ Radiation: Back Activities at Onset: None Modifying Factors: Worsens With Movement, Worsens With Palpation Associated Symptoms: Back Pain, Nausea/Vomiting Allergies and Home Medications Allergies Coded Allergies: Penicillins (Verified Allergy, Severe, HIVES, 02/05/12) Home Medications Cephalexin 500 Mg Capsule, 500 MG PO QID Prescribed by: KIEL ACOSTA on 03/18/17 0007 Ciprofloxacin 500 Mg/5 Ml [facility]..rec, 500 MG PO BID Prescribed by: MICHELLE BANUELOS on 05/04/20 1514 Dicyclomine HCl 20 Mg Tablet, 20 MG PO ACHS Prescribed by: MYLES BEYER on 11/30/20 0516 Docusate Sodium 100 Mg Capsule, 100 MG PO BID PRN for CONSTIPATION Prescribed by: PRETTY KWON on 09/04/15 1722 Ferrous Sulfate 325 Mg Tablet, 325 MG PO DAILY Prescribed by: ANDRADE COLEMAN on 09/05/15 0758 Hydrocodone Bit/Acetaminophen 1 Each Tablet, 1-2 TAB PO Q4H PRN for PAIN Prescribed by: PRETTY KWON on 09/04/15 1722 Hydrocodone/Acetaminophen 1 Each Tablet, 1 TAB PO Q6H PRN for PAIN-MODERATE (5- 7) Prescribed by: MYLES BEYER on 11/30/20 0516 Ibuprofen 600 Mg Tablet, 600 MG PO Q6H Prescribed by: PRETTY KWON on 09/04/15 1722 Metronidazole 500 Mg Tablet, 500 MG PO BID Prescribed by: MICHELLE BANUELOS on 05/04/20 1514 Ondansetron 4 Mg Tab.rapdis, 4 MG SL Q4H PRN for NAUSEA/VOMITING-1ST LINE Prescribed by: KIEL ACOSTA on 03/18/17 0004 Prednisone 10 Mg Tab, 40 MG PO DAILY Prescribed by: SUSANNA MURRY on 12/30/18 014 Vit No.78/Iron/FA 1 Each Tablet, 1 EACH PO DAILY, (Reported) Sulfamethoxazole/Trimethoprim 1 Each Tablet, 2 EACH PO BID Prescribed by: SUSANNA MURRY on 12/30/18 014 Sulfamethoxazole/Trimethoprim 1 Each Tablet, 1 EACH PO BID Prescribed by: DINORA QUINN on 01/19/192200 Patient Home Medication List Home Medication List Reviewed: Yes Review of Systems Review of Systems Constitutional: see HPI EENTM: No Symptoms Reported Respiratory: No Symptoms Reported Cardiovascular: No Symptoms Reported Gastrointestinal: Abdominal Pain, Nausea Genitourinary: No Symptoms Reported Musculoskeletal: no symptoms reported Skin: no symptoms reported Psychiatric/Neurological: Headache All Other Systems Reviewed Negative Unless Noted: Yes Past Uvikvep-Qbwzzx-Srnezr Hx Patient Social History Drug of Choice: TESTED + FOR METH/ AMPHETAMINES ON 12/30/18 Type Used: Cigarettes 2nd Hand Smoke Exposure: Yes Immunizations Up To Date Tetanus Booster (TDap): More than 5yrs PED Vaccines UTD: Yes Date of Influenza Vaccine: Jul 08, 2015 Past Medical History Surgeries: Yes ( X 2 ) Section Respiratory: No Cardiac: No Neurological: Yes Headaches /Migraines Reproductive Disorders: No Female Reproductive Disorders: Denies DIRECTOR OF ANALYTICS History: IUD Sexually Transmitted Disease: No HIV/AIDS: No Genitourinary: No Gastrointestinal: Yes ( INDUCED-TAKE TUMS) Gastroesophageal Reflux Musculoskeletal: No Endocrine: No Loss of Vision: Bilateral Hearing Impairment: Denies Cancer: No Psychosocial: Yes Anxiety, Depression Integumentary: No Blood Disorders: No Adverse Reaction/Blood Tranf: No Family Medical History Hypertension 19 FATHER Physical Exam Vital Signs Vital Signs - First Documented 11/30/20 05:25 Temp 36.8 Pulse 74 Resp 20 B/P (MAP) 120/80 Pulse Ox 100 O2 Delivery Room Air Capillary Refill : Height/Weight/BMI Height: 5'6.00" Weight: 120lbs. oz. [id number]; 21.69 BMI Method:Stated General Appearance: WD/WN, mild distress HEENT: PERRL/EOMI Respiratory: lungs clear, normal breath sounds, no respiratory distress, no accessory muscle use Cardiovascular: regular rate, rhythm Gastrointestinal: normal bowel sounds, soft, no organomegaly, guarding, tenderness Extremities: non-tender, normal inspection, no pedal edema, normal capillary refill Back: normal inspection, no CVA tenderness Neurologic/Psychiatric: alert, normal mood/affect, oriented x 3 Skin: normal color, warm/dry Procedures/Interventions Suture Size: 4-0 Progress/Results/Core Measures Results/Orders Lab Results Laboratory Tests Test 11/30/20 03:38 Range/Units White Blood Count 12.6 H 4.3-11.0 10^3/uL Red Blood Count 4.79 3.80-5.11 10^6/uL Hemoglobin 14.1 11.5-16.0 g/dL Hematocrit 42 35-52 % Mean Corpuscular Volume 88 80-99 fL Mean Corpuscular Hemoglobin 29 25-34 pg Mean Corpuscular Hemoglobin Concent 33 32-36 g/dL Red Cell Distribution Width 12.6 10.0-14.5 % Platelet Count 254 130-400 10^3/uL Mean Platelet Volume 10.8 9.0-12.2 fL Immature Granulocyte % (Auto) 0 % Neutrophils (%) (Auto) 74 42-75 % Lymphocytes (%) (Auto) 12 12-44 % Monocytes (%) (Auto) 13 H 0-12 % Eosinophils (%) (Auto) 0 0-10 % Basophils (%) (Auto) 0 0-10 % Neutrophils # (Auto) 9.4 H 1.8-7.8 10^3/uL Lymphocytes # (Auto) 1.5 1.0-4.0 10^3/uL Monocytes # (Auto) 1.6 H 0.0-1.0 10^3/uL Eosinophils # (Auto) 0.0 0.0-0.3 10^3/uL Basophils # (Auto) 0.1 0.0-0.1 10^3/uL Immature Granulocyte # (Auto) 0.1 0.0-0.1 10^3/uL Sodium Level 132 L 135-145 MMOL/L Potassium Level 3.8 3.6-5.0 MMOL/L Chloride Level 97 L 98-107 MMOL/L Carbon Dioxide Level 24 21-32 MMOL/L Anion Gap 11 5-14 MMOL/L Blood Urea Nitrogen 11 7-18 MG/DL Creatinine 0.87 0.60-1.30 MG/DL Estimat Glomerular Filtration Rate > 60 BUN/Creatinine Ratio 13 Glucose Level 94 70-105 MG/DL Calcium Level 9.1 8.5-10.1 MG/DL Corrected Calcium 8.8 8.5-10.1 MG/DL Total Bilirubin 1.6 H 0.1-1.0 MG/DL Aspartate Amino Transf (AST/SGOT) 18 5-34 U/L Alanine Aminotransferase (ALT/SGPT) 16 0-55 U/L Alkaline Phosphatase 90 40-136 U/L Total Protein 7.9 6.4-8.2 GM/DL Albumin 4.4 3.2-4.5 GM/DL Lipase 16 8-78 U/L Serum Test, Qualitative NEGATIVE NEGATIVE My Orders Orders - MYLES BEYER MD Ed Iv/Invasive Line Start (11/30/20 03:16) Cbc With Automated Diff (11/30/20 03:16) Comprehensive Metabolic Panel (11/30/20 03:16) Lipase (11/30/20 03:16) Hcg,Qualitative Serum (11/30/20 03:16) Dicyclomine Injection (Bentyl Injection) (11/30/20 03:16) Ketorolac Injection (Toradol Injection) (11/30/20 03:30) Ondansetron Injection (Zofran Injectio (11/30/20 03:30) Sumatriptan Injection (Imitrex Injection (11/30/20 04:30) Medications Given in ED Vital Signs/I&O 11/30/20 11/30/20 05:25 05:57 Temp 36.8 37.0 Pulse 74 110 Resp 20 18 B/P (MAP) 120/80 123/87 (99) Pulse Ox 100 100 O2 Delivery Room Air Room Air Progress Progress Note : Time: 04:27 Progress Note Patient reassessed still has a mild headache. Would like to try some Imitrex for that. Her abdominal pain is much improved however. She does have a little bit of an elevation in her total bilirubin at 1.6 with a mild elevation of white blood cells at 12,000. Abdomen exam is completely benign at this point. We will schedule her for an outpatient gallbladder ultrasound later today or tommorrow/ Patient is given good return precautions including fever, return of pain vomiting. 0513 Patient feels much better headache is completely relieved. Abdominal pain continues to be improved. Patient will be sent home with a gallbladder ultrasound order. She is given hydrocodone and Bentyl as needed for pain. She is comfortable with this plan of care. All questions are sought and answered. Patient is stable for discharge. Departure Impression Primary Impression: Abdominal pain Qualified Codes: R10.11 - Right upper quadrant pain Additional Impression: Headache Qualified Codes: G44.209 - Tension-type headache, unspecified, not intractable Disposition: 01 HOME, SELF-CARE Condition: Stable Departure-Patient Inst. Decision time for Depature: 05:14 [facility]: [facility] [place] Primary Care Physician Patient Instructions: Headache, Adult ED, Abdominal Pain, Adult ED Add. Discharge Instructions: Drink plenty of fluids to stay well-hydrated. Use the Bentyl and hydrocodone as needed for pain. Avoid fatty foods. I have given you an outpatient order for a gallbladder ultrasound. Please call to schedule this at your convenience. Come back to the emergency room if you have a return of abdominal pain especially associated with fever, vomiting or any other emergent concerning symptoms Scripts Hydrocodone/Acetaminophen (Hydrocodone-Acetamin 5-325 mg) 1 Each Tablet 1 TAB PO Q6H PRN for PAIN-MODERATE (5-7), #15 TAB Prov: MYLES BEYER MD 11/30/20 Dicyclomine HCl (Dicyclomine HCl) 20 Mg Tablet 20 MG PO ACHS, #60 TAB Prov: MYLES BEYER MD 11/30/20 MYLES BEYER MD November 30, 2020 03:20
[2020-11-30] MEDS ORDERED: ONDANSETRON 4 MG/2 ML (SDV) Z0FRAN IVP ONE (03:30)
[2020-11-30] MEDS ORDERED: KETOROLAC 30 MG/ML VIAL IVP PRN (03:30)
[2020-11-30 03:44] LABS: BASOPHILS # (AUTO) 0.1 10^3/uL (0.0-0.1); BASOPHILS % (AUTO) 0 % (0-10); EOSINOPHILS % (AUTO) 0 % (0-10); HEMATOCRIT 42 % (35-52); HEMOGLOBIN 14.1 g/dL (11.5-16.0); LYMPHOCYTES # (AUTO) 1.5 10^3/uL (1.0-4.0); LYMPHOCYTES % (AUTO) 12 % (12-44); MEAN CORPUSCULAR HEMOGLOBIN 29 pg (25-34); MEAN CORPUSCULAR HGB CONC 33 g/dL (32-36); MEAN CORPUSCULAR VOLUME 88 fL (80-99); MEAN PLATELET VOLUME 10.8 fL (9.0-12.2); MONOCYTES # (AUTO) 1.6 10^3/uL (0.0-1.0); MONOCYTES % (AUTO) 13 % (0-12); NEUTROPHILS # (AUTO) 9.4 10^3/uL (1.8-7.8); NEUTROPHILS % (AUTO) 74 % (42-75); PLATELET COUNT 254 10^3/uL (130-400); WHITE BLOOD COUNT 12.6 10^3/uL (4.3-11.0)
[2020-11-30 03:51] LABS: ALBUMIN 4.4 GM/DL (3.2-4.5)
[2020-11-30 03:52] LABS: CHLORIDE 97 MMOL/L (98-107); POTASSIUM 3.8 MMOL/L (3.6-5.0); SODIUM 132 MMOL/L (135-145)
[2020-11-30 03:53] LABS: CALCIUM 9.1 MG/DL (8.5-10.1)
[2020-11-30 03:54] LABS: GLUCOSE 94 MG/DL (70-105); TOTAL PROTEIN 7.9 GM/DL (6.4-8.2)
[2020-11-30 03:55] LABS: CARBON DIOXIDE 24 MMOL/L (21-32)
[2020-11-30 03:56] LABS: BILIRUBIN,TOTAL 1.6 MG/DL (0.1-1.0)
[2020-11-30 03:57] LABS: ALKALINE PHOSPHATASE 90 U/L (40-136)
[2020-11-30 03:58] LABS: CREATININE SERUM 0.87 MG/DL (0.60-1.30); GFR ESTIMATED > 60
[2020-11-30 03:59] LABS: BUN/CREATININE RATIO 13
[2020-11-30 04:01] LABS: ALANINE AMINOTRANSFERASE 16 U/L (0-55); LIPASE 16 U/L (8-78)
[2020-11-30] MEDS ORDERED: SUMAtriptan 6 MG/0.5 ML (IMITREX) INJ SQ ONE (04:30)
[2020-11-30] MEDS ORDERED: ACHD5005 PO (05:16)
[2020-11-30] MEDS ORDERED: DICY20TA10 PO (05:16)
[2020-11-30 05:57] VITALS: BP 123/87
== END 2020-11-30 05:25 | disposition home or self-care (01) ==
LOC: EDUNIT# 02:57 → ER 02:59
DX: R10.13 Epigastric pain (principal); R51.9 Headache, unspecified; Z88.0 Allergy status to penicillin; Z77.22 Contact with and (suspected) exposure to environmental tobacco smoke (acute) (chronic); Z79.52 Long term (current) use of systemic steroids
CPT/HCPCS: 36415; 80053; 83690; 84703; 85025